=== PATIENT | male | born 1980 | race Caucasian/White ===

== ENCOUNTER → 2019-05-25 16:08 | Outpatient (BNVA) | payer SELFPAY | PROVIDERS: Visit Provider Nurse Practitioner Family | DX: R50.9 Fever, unspecified (principal); J06.9 Acute upper respiratory infection, unspecified | CPT/HCPCS: 87400 ==

== ENCOUNTER → 2019-11-05 11:47 | Outpatient (BNVA) | payer OTHER, SELFPAY | PROVIDERS: Visit Provider Nurse Practitioner Family | DX: Z11.59 Encounter for screening for other viral diseases (principal) | CPT/HCPCS: 87635 ==

== ENCOUNTER → 2021-03-02 00:01 | Outpatient (BNVA) | payer OTHER, SELFPAY | PROVIDERS: Visit Provider Nurse Practitioner Family | DX: Z20.822 Contact with and (suspected) exposure to COVID-19 (principal) | CPT/HCPCS: 87635 ==

== ENCOUNTER 2021-09-29 13:52 | Observation (INO) | payer MEDICAID, SELFPAY ==
[2021-09-29] VITALS (9 sets, daily range): BP systolic 137–180; BP diastolic 77–115; PULSE 60–87; RESP 16–18; TEMP 36.7–36.8; O2SAT 95–99; BMI 41.0
--- NOTE | 2021-09-29 13:53 | ECG_ITS ---
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 Measurements Intervals [place] Rate: 92 P: 62 ID: 124 QRS: 11 QRSD: 102 T: 42 QT: 410 QTc: 508 Interpretive Statements SINUS RHYTHM No previous ECG available for comparison Electronically Signed On 09-29-2021 21:33:34 CDT by Raquel Pena M.D. [id number]
--- NOTE | 2021-09-29 14:18 | ED_ITS ---
HPI - General Adult General: Chief complaint: Chest Pain Stated complaint: Chest pain Left side tingling and numb Time Seen by Provider: 09/29/21 14:04 History of Present Illness: Patient is a 41-year-old male with a history of smoking and family history cardiac disease presenting to the emergency room with intermittent chest pressure. Patient first with chest pressure 3 days ago l asted for 30 minutes. Yesterday, patient also had additional episode of chest pressure yesterday morning with associated lightheadedness. Per patient's , patient briefly fell asleep after having the chest pressure for 10 minutes after having his chest pain yesterday morning. Patient denied any LOC yesterday. Patient earlier this morning around 10 AM also continues to have some chest pressure that is persistent. Patient was also noted to be mildly diaphoretic with nausea without vomiting. Patient reports the chest pressure radiates towards her his left arm. Patient denies any sharp pain or any pleuritic pain. Patient has no recent immobilization, surgery, fever/chills, cough, runny nose sore throat, leg swelling, or previous history of DVT/PE. Patient has no family history of aneurysms of the aorta. Patient reports that his uncle from a heart attack in his 40s. Denies any exertional chest pain in the last few days. Onset:3 days ago Duration:ongoing intermittent worsening Location:home Severity:moderate Associated symptoms: Reports chest pain; Deny dyspnea, nausea, rash, palpitations or vomiting Review of Systems Const: Denies: fever(s) or chills Eyes: Denies: change in vision ENMT: Denies: mouth pain Card: Reports: chest pain; Denies: palpitations Resp: Denies: dyspnea or non-productive cough GI: Denies: abdominal pain, nausea, vomiting or diarrhea : Denies: dysuria Musc: Denies: extremity pain Skin/Breast: Denies: rash or new lesions Neuro: Reports: other (+light-headedness/ reported patient fell asleep after chest pain ); Denies: weakness in extremities Psych: Reports: other (Normal mood) Chato/Lymph: Denies: easy bruising PFS ED PFSH: Medical History No pertinent past medical history Family History Other CAD (coronary artery disease) Social History Smoking and tobacco status: current every day smoker cigarettes Packs smoked per day: 1 Alcohol intake: never Lives independently: Yes Household members: spouse Housing: House Marital status: History of recent travel: No Physical Exam Const: COMMON NORMALS: alert HENMT: COMMON NORMALS: atraumatic HEAD & SCALP: atraumatic MOUTH: moist mucous membranes not abnormal Eye: COMMON NORMALS: EOMs intact bilaterally and conjunctivae normal CONJUNCTIVA: Yes conjunctivae normal Neck/C-Spine: COMMON NORMALS: full ROM and supple Resp: COMMON NORMALS: normal respiratory effort and clear to auscultation bilaterally AUSCULTATION: clear to auscultation bilaterally Cardio: COMMON NORMALS: regular rate RATE: regular rate OTHER: 2+ radial pulses b/l GI: COMMON NORMALS: Soft to palpation and non-tender PALPATION: Yes Soft to palpation OTHER: No focal TTP. NO guarding rebound, guarding, rigidity. No CVA tenderness to percussion. Neg Mccoy/Neg McBurney's point tenderness, no suprabupic tenderness to palpation. Extremity: COMMON NORMALS: full ROM OTHER: no lower extremity edema Neuro: SENSORIUM/ORIENTATION: Yes alert MOTOR EXAM: No Abnormal motor strength present and Other motor observations present (no focal motor deficits) Psych: COMMON NORMALS: speech normal SPEECH: Yes normal speech MOOD & AFFECT: Yes euthymic mood Course Vital Signs: Vital signs: Vital Signs Temperature 98.1 F 09/29/21 13:53 Pulse Rate 66 09/29/21 18:00 Respiratory Rate 16 09/29/21 18:00 Blood Pressure 149/86 09/29/21 18:00 Pulse Oximetry 98 09/29/21 18:00 MDM - General Adult Medical Decision Making [41]yo patient w/ hx of family hx of cardiac disease and smoking presenting to the ED with evaluation of new intermittent chest pressures x 3 days with one ep isode associated with light-headedness vs syncope. HDS, pulse 2+ radially bilaterally, no signs of fluid overload, AAOx3, neuro exam intact. Given History and Exam today I have no suspicion for ACS, Pneumothorax, Pneumonia, Pulmonary Embolus, Tamponade, Aortic Dissection or other emergent problems as a cause for this presentation. Workup: ECG x2, CXR, CBC, BMP, Troponin x 2 Interventions: ASA 325mg, nitro SL PRN pain Findings: ECG: No overt evidence of STEMI, hyperacute T waves, localizable STD or T wave inversions. No evidence of Brugada?s sign, delta wave, epsilon wave, significantly prolonged QTc, or malignant arrhythmia. No Q waves. Other Labs unremarkable for emergent problems. CXR: Without PTX, PNA, or widened mediastinum Last Stress Test: never Last Heart Catheterization: never PERC: Negative [6:14pm] On reassessment, the patient is HDS, no complaints of persistent chest pain in the ED after evaluation. EKG is nonischemic. Troponin x2 within normal limit. At the present time, performed shared decision making with patient. Given the fact that this patient's third episodes of chest pain last 3 days and previous episodes were accompanied by syncope patient had diaphoresis earlier today, this is concerning for ACS despite negative work-up at this point. Patient agrees to stay for ACS work-up Disposition: admission Lab Data : 09/29/21 14:25 09/29/21 14:25 Radiology Impressions Chest X-Ray 09/29/21 15:23 IMPRESSION: 1. No acute process identified. Laboratory Results WBC 11.6 10^3/uL (4.0-10.0) H 09/29/21 14:25 RBC 4.85 10^6/uL (4.1-5.3) 09/29/21 14:25 Hgb 14.7 g/dL (11.7-16.6) 09/29/21 14:25 Hct 45.1 % (42.0-52.0) 09/29/21 14:25 MCV 93.0 fl (80-94) 09/29/21 14:25 MCH 30.3 pg (28.0-34.0) 09/29/21 14:25 MCHC 32.6 g/dL (30.0-36.0) 09/29/21 14:25 RDW 13.2 % (12.1-15.1) 09/29/21 14:25 Plt Count 231 10^3/cmm (130-400) 09/29/21 14:25 MPV 11.2 fL (7.4-10.4) H 09/29/21 14:25 Neut % (Auto) 76.1 % 09/29/21 14:25 Lymph % (Auto) 16.3 % 09/29/21 14:25 [place] % (Auto) 6.7 % 09/29/21 14:25 Eos % (Auto) 0.3 % 09/29/21 14:25 Baso % (Auto) 0.3 % 09/29/21 14:25 Neut # (Auto) 8.79 10^3/uL (1.8-7.7) H 09/29/21 14:25 Lymph # (Auto) 1.9 10^3/uL (0.8-4.8) 09/29/21 14:25 [place] # (Auto) 0.8 10^3/uL (0.2-0.9) 09/29/21 14:25 Eos # (Auto) 0.0 10^3/uL (0.0-0.8) 09/29/21 14:25 Baso # (Auto) 0.0 10^3/uL (0.0-0.1) 09/29/21 14:25 Nucleated RBC % (auto) 0 % 09/29/21 14:25 Nucleated RBCs # 0.0 /100WBC 09/29/21 14:25 Sodium 139 mmol/L (136-145) 09/29/21 14:25 Potassium 3.7 mmol/L (3.5-5.1) 09/29/21 14:25 Chloride 105 mmol/L (98-107) 09/29/21 14:25 Carbon Dioxide 24 mmol/L (22-29) 09/29/21 14:25 Anion Gap 13.7 (5-19) 09/29/21 14:25 BUN 10 mg/dL (6-20) 09/29/21 14:25 Creatinine 0.7 mg/dL (0.7-1.2) 09/29/21 14:25 GFR Calculation 124.9 mL/min (90-130) 09/29/21 14:25 Glucose 89 mg/dL (65-115) 09/29/21 14:25 Calculated Osmolality 287 mOsm/kg (285-295) 09/29/21 14:25 Calcium 9.2 mg/dL (8.5-10.5) 09/29/21 14:25 Troponin T Baseline 6 ng/L (0-15) 09/29/21 14:25 Troponin T 120 Minute 6.00 ng/L (0-15) 09/29/21 16:57 Delta Troponin T 0 ABS# (0-10) 09/29/21 16:57 Imaging Data Other Imaging: Radiologist's impression: [facility] [place] [address] XRay Report Signed Patient: Yaniv Peñaloza Unit #: [id number] : 1980 Age/Sex: 41 / M ADM Date: 09/29/21 Loc: ER Room/Bed: Attending Dr: Ordering Provider/Ordering MD: Yo Perez MD Date of Service: 09/29/21 Procedure(s): XR chest 1V portable [id number] Accession Number(s): [id number] Report Number: [id number] WS: [id number] Exam: XR chest 1V portable [id number] Date/Time of Exam: 09/29/2021 3:25 PM Reason For Exam: chest pain No priors. The lungs are fully expanded. No consolidating infiltrates or pleural effusions. Cardiomediastinal silhouette is unremarkable for technique. Decreased lung volumes appear to be secondary to limited inspiration. Bony structures are intact. XR/XR chest 1V portable [id number] IMPRESSION: 1. No acute process identified. ? Dictated By: Reza House DO Signed By: Reza House DO Signed Date/Time: 09/29/21 1538 DD/ 1536 Discharge Plan Discharge Patient Disposition: Admitted As Inpatient Clinical Impression: Chest pain Condition: Stable Coding Level of Care Code ED Research Advisor for Chg Fwd Exam Comprehensive
[2021-09-29] MEDS: aspirin 325 mg Tablet PO (15:01)
--- NOTE | 2021-09-29 15:23 | XR_ITS ---
WS: [id number] Exam: XR chest 1V portable [id number] Date/Time of Exam: 09/29/2021 3:25 PM Reason For Exam: chest pain No priors. The lungs are fully expanded. No consolidating infiltrates or pleural effusions. Cardiomediastinal si lhouette is unremarkable for technique. Decreased lung volumes appear to be secondary to limited insp iration. Bony structures are intact. XR/XR chest 1V portable [id number] IMPRESSION: 1. No acute process identified.
[2021-09-29 16:20] LABS: Basophils % 0.3 %; Eosinophils % 0.3 %; Hematocrit 45.1 % (42.0-52.0); Hemoglobin 14.7 g/dL (11.7-16.6); Lymphocytes # 1.9 10^3/uL (0.8-4.8); Lymphocytes % 16.3 %; Mean Corpuscular HGB Conc 32.6 g/dL (30.0-36.0); Mean Corpuscular Hemoglobin 30.3 pg (28.0-34.0); Mean Platelet Volume 11.2 fL (7.4-10.4); Monocytes # 0.8 10^3/uL (0.2-0.9); Monocytes % 6.7 %; Neutrophils # 8.79 10^3/uL (1.8-7.7); Neutrophils % 76.1 %; Nucleated Red Blood Cells % 0 %; Platelet Count 231 10^3/cmm (130-400); Red Blood Count 4.85 10^6/uL (4.1-5.3); Red Cell Distribution Width 13.2 % (12.1-15.1); White Blood Count 11.6 10^3/uL (4.0-10.0)
[2021-09-29 16:33] LABS: Troponin(5th) Baseline 6 ng/L (0-15)
[2021-09-29 16:41] LABS: Anion Gap 13.7 (5-19); Blood Urea Nitrogen 10 mg/dL (6-20); Calcium 9.2 mg/dL (8.5-10.5); Carbon Dioxide 24 mmol/L (22-29); Chloride 105 mmol/L (98-107); Glomerular Filtration Rate 124.9 mL/min (90-130); Glucose 89 mg/dL (65-115); Osmolality Calculated 287 mOsm/kg (285-295); Potassium 3.7 mmol/L (3.5-5.1); Sodium 139 mmol/L (136-145)
[2021-09-29 17:51] LABS: Troponin 5 2HR Delta 0 ABS# (0-10)
--- NOTE | 2021-09-29 18:12 | ECG_ITS ---
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 Measurements Intervals [place] Rate: 60 P: 52 MI: 143 QRS: 26 QRSD: 100 T: 41 QT: 401 QTc: 403 Interpretive Statements SINUS RHYTHM Compared to ECG 09/29/2021 13:59:37 No significant changes Electronically Signed On 09-29-2021 21:40:03 CDT by Raquel Pena M.D. [id number]
--- NOTE | 2021-09-29 18:54 | PM.HP ---
Providers/Chief Complaint Chief Complaint: Chest pain Left side tingling and numb History of Present Illness Yaniv Peñaloza is a 41 year old male who presented with chief complaint of chest pain. Patient is stating that he is conscious about family history of MS, his uncle had MS at age 40. He does not have any medical surgical history. 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 On Tuesday he start experiencing tightness in his chest but would not call the chest pain, on Tuesday he started spearing seeing numbness in his left arm that made him very anxious and that prompted his visit to the ER. His blood pressure lately was very high. Did not experience fever, shortness of breath, orthopnea, PND, cold sweats. 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 EKG unremarkable. Stress test was requested for next morning, echo requested Review of Systems Const: Denies: fever(s) Eyes: Denies: change in vision ENMT: Denies: throat pain Card: Denies: chest pain Resp: Denies: dyspnea GI: Denies: abdominal pain : Denies: flank pain Musc: Denies: neck pain Skin/Breast: Denies: rash Neuro: Denies: headache(s) Psych: Denies: anxiety Endo: Denies: polyuria Chato/Lymph: Denies: easy bruising All/Imm: Denies: urticaria Medications/Allergies Home Medications Medication Instructions Recorded Confirmed Last Taken Type No Known Home Medications 11/05/19 09/29/21 Unknown History Allergies Allergy/AdvReac Type Severity Reaction Status Date / Time No Known Allergies Allergy Verified 03/02/21 11:29 PFSH Acute PFSH: Medical History No pertinent past medical history No pertinent past medical history Surgical History No significant past surgical history Family History Other CAD (coronary artery disease) Social History Smoking and tobacco status: current every day smoker cigarettes Packs smoked per day: 1 Alcohol intake: never Lives independently: Yes Household members: spouse Housing: House Marital status: History of recent travel: No Vitals/I&O/Wt Last Vital Signs Temp 98.1 F 09/29/21 13:53 Pulse 66 09/29/21 18:00 Resp 16 09/29/21 18:00 BP 149/86 09/29/21 18:00 Pulse Ox 98 09/29/21 18:00 Weight last 48 hrs Weight 161.025 kg Physical Exam Narrative: Morbidly obese male Euvolemic Abdomen soft S1, S2 No audible stridor or wheezing Awake and alert No sign of cellulitis Pleasant and cooperative EOMI, PERRLA Data : 09/30/21 02:18 09/30/21 02:18 A&P Assessment and plan (1) Atypical chest pain: Status: Acute Plan Atypical chest pain Numbness of bilateral upper extremity No neck pain or headache No recent trauma Suspicion low for carotid artery dissection Will request echo Stress test in the morning No active symptoms Hemodynamically stable No signs of ACS Troponin, EKG unremarkable Check D-dimer , TSH Drug screen Full code Cardiac cath, n.p.o. after midnight DVT prophylaxis on board Attestations Medical Necessity Statement*: Anticipating discharge within 48 hrs to also need evaluation for angina Time Spent in Patient Care: 40 Coding Level of Care Code Acute Telesales Representative for Myesha Mcneal Diagnoses Atypical chest pain R07.89
[2021-09-29 18:59] LABS: Amphetamines Screen Urine Negative (Negative); Barbiturates Screen Urine Negative (Negative); Benzodiazepines Screen Urine Negative (Negative); Cocaine Screen Urine Negative (Negative); Opiate Screen Urine Negative (Negative); PCP Screen Urine Negative (Negative); THC Screen Urine Negative (Negative)
--- NOTE | 2021-09-29 19:51 | PC.NURSE ---
Report from ADIEL Trejo. Pt sitting up in bed. No complaints at this time. VSS and recorded. IV flushed and patent. Assisted pt to restroom. No further needs at this time.
[2021-09-29 20:26] LABS: Thyroid Stimulating Hormone 0.88 uIU/mL (0.27-4.20)
[2021-09-29 20:59] LABS: D Dimer 0.34 ug/mIFEU (0-0.59)
--- NOTE | 2021-09-29 21:39 | USCV_ITS ---
Yaniv Peñaloza Age: 41 Gender: M : 1980 Exam Date: 09/29/2021 22:30 Ordering Phys: Roxanna Torrez MD Technologist: NADJA [place]am [place] [facility] [place] Indication: syncope. no DM. Smoker BP: 142 / 78 HR: 69 Rhythm: Sinus Technical Quality: Adequate with [employer] MEASUREMENTS (Male / Female) Normal Values 2D ECHO LV Diastolic Diameter PLAX 4.6 cm 4.2 - 5.9 / 3.9 - 5.3 cm LV Systolic Diameter PLAX 3.1 cm IVS Diastolic Thickness 1.7 cm 0.6 - 1.0 / 0.6 - 0.9 cm IVS Systolic Thickness 2.0 cm LVPW Diastolic Thickness 1.4 cm 0.6 - 1.0 / 0.6 - 0.9 cm LVPW Systolic Thickness 2.1 cm LVOT Diameter 2.4 cm LV Ejection Fraction 2D Teich 59.3 % LV Ejection Fraction MOD 2C 70.7 % LV Ejection Fraction 2C AL 71.4 % LA Diameter 3.6 cm LA Width 4.2 cm LA Height 4.8 cm RA Width 3.6 cm RA Height 3.6 cm Aorta at Sinotubular Diameter 3.4 cm IVC Diameter 1.5 cm M-MODE Aortic Annulus Diameter 3.5 cm LA Ao Ratio MM 1.0 MV E Point Septal Separation 0.5 cm DOPPLER AV Peak Velocity 127.0 cm/s LVOT Peak Velocity 92.0 cm/s AV Area Cont Eq vti 3.0 cm squared AV Area Cont Eq pk 3.1 cm squared MV Peak Velocity 87.0 cm/s MV Area PHT 3.2 cm squared Mitral E to A Ratio 1.1 MV E' Velocity 44.0 cm/s Mitral E to MV E' Ratio 6.3 Mitral E to LV E' Lateral Ratio 6.4 Mitral E to LV E' Septal Ratio 6.3 TR Peak Velocity 181.0 cm/s TR Peak Gradient 13.1 mmHg TV Peak E Velocity 53.0 cm/s Right Atrial Pressure 5.0 mmHg Pulmonary Artery Systolic Pressu 18.1 mmHg PV Peak Velocity 88.0 cm/s RV Acceleration Time 0.2 s RV Ejection Time 0.4 s RV AcT/ET 0.5 FINDINGS Left Ventricle Normal left ventricular size, systolic function and wall thickness, with no regional wall motion abnormalities. Normal diastolic function. Left ventricular ejection fraction is estimated at 65 %. IV contrast used. Right Ventricle Normal right ventricular size and systolic function. Normal right ventricular systolic pressure. Right Atrium The right atrium is normal in size. Left Atrium The left atrium is normal in size. Mitral Valve Structurally normal mitral valve. Trace mitral valve regurgitation. Aortic Valve Structurally normal aortic valve without significant sclerosis or stenosis. There is no aortic regurgitation. Tricuspid Valve Structurally normal tricuspid valve. Trace tricuspid valve regurgitation. Pulmonic Valve Pulmonic valve not well visualized. Pericardium Normal pericardium without effusion. Aorta Normal ascending aorta dimension. IVC The inferior vena cava pulmonary and hepatic veins appear normal. CONCLUSIONS Normal left ventricular size, systolic function and wall thickness, with no regional wall motion abnormalities. Normal diastolic function. Left ventricular ejection fraction is estimated at 65 %. IV contrast used. Structurally normal mitral valve. Trace mitral valve regurgitation. Dr. Eliezer Galeano MD (Electronically Signed) Final Date: 30 September 2021 10:51 S
--- NOTE | 2021-09-29 21:39 | USCV_ITS ---
Yaniv Peñaloza Age: 41 Gender: M : 1980 Exam Date: 09/29/2021 22:01 Ordering Phys: Roxanna Torrez MD Technologist: NADJA Exam Location: [facility] Indication: syncope. no DM. Smoker Risk Factors: syncope. no DM. Smoker Previous Vascular Surgery: None Right Brachial BP: / Left Brachial BP: / Right Left Velocity (cm/s) Spectral Plaque Velocity (cm/s) Spectral Plaque Syst/Diast Broadening Syst/Diast Broadening 69.50/ 17.60 Min None Prox CCA 124.90/ 38.10 Min None 87.10/ 17.60 Min None Mid CCA 117.00/ 28.90 Min None 110.30/33.10 Min None Distal CCA 107.80/ 27.60 Min None 55.20/ 21.80 Min None Prox ICA 93.30 / 32.90 Min None 80.00/ 34.90 Min None Mid ICA 74.40 / 38.10 Min None 72.90/ 27.80 Min None Distal ICA 91.10 / 38.10 Min None 88.20 None None ECA 96.00 None None 0.73 ICA/CCA 0.75 Antegrade Vertebral Antegrade 40.70/ 18.10 cm/s 31.90/ 8.50 cm/s Tri Subclavian Tri 65.30 68.20 CONCLUSIONS Right ICA stenosis <50%. Mild atheromatous plaque right carotid bulb/ICA. Left ICA stenosis <50%. Mild atheromatous plaque left carotid bulb/ICA. Normal antegrade Doppler flow noted in the right vertebral artery. Normal antegrade Doppler flow noted in the left vertebral artery. Carlo García MD (Electronically Signed) Final Date: 01 October 2021 17:37 S
[2021-09-29 22:08] LABS: SARS Covid-2 Antigen Negative (Negative)
--- NOTE | 2021-09-29 22:12 | ECG_ITS ---
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 Measurements Intervals [place] Rate: 58 P: 60 IA: 147 QRS: 29 QRSD: 108 T: 37 QT: 414 QTc: 409 Interpretive Statements SINUS BRADYCARDIA Compared to ECG 09/29/2021 18:19:47 Sinus rhythm no longer present Electronically Signed On 09-30-2021 16:32:20 CDT by Eliezer Galeano M.D. [email or web address]/store/[id number]
[2021-09-29] MEDS: enoxaparin 40 mg/0.4 mL Syringe SUBCUT (22:16)
[2021-09-29 22:47] LABS: Troponin 5 6HR Delta 0 ng/L (0-12)
[2021-09-30] VITALS (15 sets, daily range): BP systolic 122–171; BP diastolic 64–92; PULSE 57–83; RESP 14–18; TEMP 36.7–37.1; O2SAT 96–99
--- NOTE | 2021-09-30 | ECG_ITS ---
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 Interpretive Statements NAME OF STUDY: LEXISCAN SESTAMIBI STRESS TEST INDICATION: Syncope, PROCEDURE: At the baseline, the EKG revealed normal sinus rhythm with a normal ST Ts. The baseline blood pressure was 125/91 mm Hg with a heart rate of 75 beats/min. Lexiscan was infused over a period of 20 seconds. A total of 0.4 milligrams of Lexiscan was infused. The stress phase was continued for a total of 5 minutes. Heart rate at the end of the stress phase was 89 with a blood pressure 137/86. The EKG at the peak infusion revealed no significant changes. Sestamibi was injected 20 seconds after the Lexiscan infusion. Blood pressure at the end of the recovery phase was 142/83 with a heart rate of 87 per minute. CONCLUSION: 1. No significant EKG changes with the LexiScan infusion 2. No LexiScan induced chest pain or cardiac arrhythmia 3. Normal blood pressure and heart rate response 4. Sestamibi/sestamibi perfusion scan pending; see separate report. Electronically Signed On 10-02-2021 18:00:23 CDT by Samuel Cobb M.D. [id number]
[2021-09-30 04:37] LABS: Anion Gap 12.9 (5-19); Blood Urea Nitrogen 8 mg/dL (6-20); Calcium 8.9 mg/dL (8.5-10.5); Carbon Dioxide 26 mmol/L (22-29); Chloride 105 mmol/L (98-107); Glomerular Filtration Rate 124.9 mL/min (90-130); Glucose 101 mg/dL (65-115); Magnesium 2.1 mg/dL (1.7-2.3); Osmolality Calculated 288 mOsm/kg (285-295); Potassium 3.9 mmol/L (3.5-5.1); Sodium 140 mmol/L (136-145)
[2021-09-30 04:59] LABS: Basophils % 0.4 %; Eosinophils # 0.1 10^3/uL (0.0-0.8); Eosinophils % 0.6 %; Hematocrit 43.4 % (42.0-52.0); Hemoglobin 13.9 g/dL (11.7-16.6); Lymphocytes % 29.2 %; Mean Corpuscular Hemoglobin 30.5 pg (28.0-34.0); Mean Corpuscular Volume 95.2 fl (80-94); Mean Platelet Volume 10.3 fL (7.4-10.4); Monocytes # 0.8 10^3/uL (0.2-0.9); Monocytes % 8.1 %; Neutrophils # 6.26 10^3/uL (1.8-7.7); Neutrophils % 61.5 %; Nucleated Red Blood Cells % 0 %; Platelet Count 194 10^3/cmm (130-400); Red Blood Count 4.56 10^6/uL (4.1-5.3); Red Cell Distribution Width 13.2 % (12.1-15.1); White Blood Count 10.2 10^3/uL (4.0-10.0)
[2021-09-30] MEDS: perflutren protein-a microsphr 0.22 mg/mL SDV 3 mL IV (05:41)
--- NOTE | 2021-09-30 07:00 | NMCV_ITS ---
NM curt perf SPECT r/s* [id number] Yaniv Peñaloza Age: 41 Gender: M : 1980 Exam Date: 09/30/2021 06:35 Ordering Phys: Roxanna Torrez MD Technologist: JEISON Crowe Exam Location: [facility] Indications: Chest pain STRESS TEST Please see separate stress test report in [facility] for full findings IMAGE PROTOCOL Rest/Stress 1 Lexiscan Day Radiopharmaceutical Dose (mCi) Administration Site Administered by Rest: Tc-99m 10.7 IV JEISON Crowe Sestamibi Stress:Tc-99m 33.0 IV JEISON Crowe Sestamibi Rest: 30-Sep-2021 60 Discovery 630 Stress: 30-Sep-2021 45 Discovery 630 0.4mg Lexiscan. Images obtained in supine and prone position. SPECT RESULTS Technical Quality: Good Raw Data Analysis: Soft tissue attenuation Image Corrections: No attenuation or motion correction applied Summed Stress Score: 8 Summed Rest Score: 11 Summed Difference Score: 2 PERFUSION FINDINGS Moderate area of moderately decreased tracer uptake was noted in the basal, mid and apical anterior wall regions. No significant reversibility was noted in these regions. Small to moderate slightly decreased visibility was noted in the mid and apical inferior wall region, with no significant reversibility. Very small area of decreased tracer uptake was noted in the LV apex with some reversibility FUNCTIONAL RESULTS (calculated via Gated SPECT) Stress Image LV EF (%): 53 Stress EDV (mL):183 TID: 1.29 Stress ESV (mL):86 FUNCTIONAL FINDINGS: Segmental wall motion analysis revealed mild diffuse hypokinesia of the septum. The transient ischemic elevation ratio was elevated at 1.29. IMPRESSIONS 1. Myocardial perfusion imaging revealing areas of persistent decreases uptake in the anterior wall and inferior wall regions, suggesting myocardial scarring versus attenuation artifacts in distribution of the left anterior descending artery and right coronary artery. A very small area of reversibility in the LV apex, may suggest colten-infarction ischemia. 2. Normal LV ejection fraction 53%. 3. Wall motion normalities as mentioned above. 4. Mildly dilated LV cavity. 5. Elevated transient ischemic dilatation ratio ( 1.29) may suggest endocardial ischemia. Clinical correlation is recommended. No similar previous studies are available for comparison Dr Samuel Cobb MD FACC (Electronically Signed) Final Date: 30 September 2021 09:21 S
[2021-09-30] MEDS: regadenoson 0.4 Mg/5 ml Syringe IVP (07:38)
--- NOTE | 2021-09-30 10:54 | PC.SOCIAL ---
Financial Assistance Received a call from patients inquiring about financial assistance application. She is gathering all the information to provide financial services. Will leave a copy of the [facility] financial assistance application w/ the patient per wifes request.
[2021-09-30 11:25] LABS: Glucose Point of Care 105 mg/dL (70-110)
--- NOTE | 2021-09-30 12:48 | PM.PN ---
Subjective Subjective: Echo and stress tests without significant remarkable ischemic changes I did discuss with Dr. Cobb who is planning to see him today considering family history I have requested tobacco roller Dr. Cobb to see him in the hospital to decide whether he would benefit from an angiogram during this hospitalization versus elective procedure Patient is not complaining of any active chest pain or numbness he stating that his left fifth digit numbness is chronic left arm numbness has improved Vitals/I&O/Wt Last Vital Signs Temp 98.4 F 09/30/21 11:34 Pulse 75 09/30/21 11:34 Resp 18 09/30/21 11:34 BP 132/79 09/30/21 11:34 Pulse Ox 98 09/30/21 11:34 O2 Del Method 09/30/21 11:34 Weight last 48 hrs Weight 161.025 kg Physical Exam Narrative: Patient is stable Morbid obese Soft abdomen S1, S2 Awake and alert No active chest pain or shortness of breath Awake and alert Nonfocal neuro exam Saturating well on room air No signs of edema No signs of stroke Data : 09/30/21 02:18 09/30/21 02:18 A&P Assessment and plan (1) Atypical chest pain: Status: Acute Plan Atypical chest pain with positive family history Dagmar-infarct changes on cardiac stress test however echo is unremarkable I requested cardiology to evaluate him at bedside Is full code Cardiac diet Currently chest pain-free I will request hemoglobin A1c level and lipid panel, he does not use any medication at home Also requested B12 level No active neck pain or headache Hemodynamically stable He should get blood pressure cuff size 12 Full code Attestations Medical Necessity Statement*: Patient plan will be made after cardiology evaluation Time Spent in Patient Care: 30 Coding Level of Care Code Acute Security Tech for Myesha Fwchad Diagnoses Atypical chest pain R07.89
--- NOTE | 2021-09-30 13:08 | ECG_ITS ---
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 Measurements Intervals [place] Rate: 68 P: 52 CO: 139 QRS: 10 QRSD: 97 T: 8 QT: 409 QTc: 436 Interpretive Statements SINUS RHYTHM Compared to ECG 09/29/2021 23:22:26 Sinus bradycardia no longer present Electronically Signed On 09-30-2021 16:30:34 CDT by Eliezer Galeano M.D. [id number]
[2021-09-30] MEDS: nitroglycerin 0.4 mg sublingual Tablet SUBLINGUAL ×2 (13:15→20:18)
[2021-09-30 13:27] LABS: Vitamin B12 465 pg/mL (232-1245)
[2021-09-30] MEDS: lisinopril 10 mg Tablet PO (13:36)
--- NOTE | 2021-09-30 13:40 | P.CONIM_ITS ---
Providers/Reason For Consult Consulting Physician/Specialty*: SCOTT Cobb MD/cardiology Reason for Consult*: Patient with chest pain and abnormal Myocardial perfusion imaging Requesting Physician: Dr. Torrez Attending Physician: Roxanna Torrez MD History of Present Illness History of Present Illness Yaniv Peñaloza is a 41 year old male with no significant past medical history, is admitted to the hospital through the emergency room, very present with complaints of a prolonged episode of chest pain. This patient apparently has been in his baseline state of health up until this S morning when he had the first episode of pain. He described it as a pressure-like pain in the lower substernal region. He had associated tingling and numbness of the inner aspect of the left arm. The episode might have lasted for couple of hours and then gradually subsided. The intensity of the pain was 1-2 over 10. The discomfort was 6/10. He had no other associated symptoms or any radiation of pain. He had similar symptoms on Tuesday and Tuesday. All these episodes happened between 10 -12 noon. No other definite precipitating factors. Today while I was talking to the patient, he was complaining of some pressure- like feeling in the epigastric area. He also complained of tingling and numbness in the inner aspect of the left arm. He seems to be not bothered with this. Apparently he is eating his lunch with this symptom!. He has no history for hypertension, diabetes or dyslipidemia. Never had a similar symptoms in the past. His father had a myocardial infarction in his 60s. One of his paternal uncles had a myocardial infarction in his 40s. Many of his paternal uncles and aunts had heart problems in their 60s and 70s. He smokes 1-1/2 pack a day for the last more than 20 years. No alcohol abuse and substance abuse. His blood pressure was found to be in the 170s on Tuesday. And on Tuesday when he had the first episode of chest pain, the blood pressure was in the 120s. Review of Systems Narrative: CONSTITUTIONAL: No fever or chills. [] EYES: No blurring of vision or other visual disturbances lately. ENT: No hoarseness of voice, auditory disturbances or sore throat. CARDIOVASCULAR: As mentioned above. RESPIRATORY: No significant cough. GASTROINTESTINAL: No hematemesis or melena. GENITOURINARY: No dysuria or hematuria. INTEGUMENTARY: No skin rashes or history of skin cancer. NEURO: No transient ischemic attacks or amaurosis. PSYCHIATRIC: No history of psychosis or major depression. HEMATOLOGIC: No bleeding disorders or significant anemia. ENDOCRINE: No history of polyuria or polydipsia. MUSCULOSKELETAL: No recent joint pain or swelling. ALLERGY/IMMUNOLOGY: As mentioned above. Medications/Allergies Home Medications Medication Instructions Recorded Confirmed Last Taken Type No Known Home Medications 11/05/19 09/29/21 Unknown History Allergies Allergy/AdvReac Type Severity Reaction Status Date / Time No Known Allergies Allergy Verified 03/02/21 11:29 Current Medications Generic Name Dose Route Start Last Admin Trade Name Freq PRN Reason Stop Dose Admin Enoxaparin Sodium 40 mg 09/29/21 22:00 09/29/21 22:16 Enoxaparin 40 Mg/0.4 Ml Syringe SUBCUT 40 mg Q24H JAYJAY Administration Nitroglycerin 0.4 mg 09/29/21 14:04 09/30/21 13:15 Nitroglycerin 0.4 Mg Sublingual Tablet SUBLINGUAL 0.4 mg Q5M PRN Administration CHEST PAIN PFSH Acute PFSH: Medical History No pertinent past medical history No pertinent past medical history Surgical History No significant past surgical history Family History Other CAD (coronary artery disease) Social History Smoking and tobacco status: current every day smoker cigarettes Packs smoked per day: 1 Alcohol intake: never Lives independently: Yes Household members: spouse Housing: House Marital status: History of recent travel: No Vitals/I&O/Wt Last Vital Signs Temp 98.4 F 09/30/21 11:34 Pulse 80 09/30/21 13:13 Resp 18 09/30/21 11:34 BP 145/77 09/30/21 13:31 Pulse Ox 98 09/30/21 11:34 O2 Del Method 09/30/21 11:34 Weight last 48 hrs Weight 355 lb Physical Exam Narrative: GENERAL: The patient is alert and oriented times three. Not in any acute distress. Morbidly obese HEENT: No significant pallor, icterus or lymphadenopathy.Oral cavity: There are no mucous membrane lesions. Fundus examination: Fundus is not visualized NECK: Trachea appears to be central. No masses noted. No JVD or thyromegaly appreciated. RESPIRATORY: Chest is symmetrical. No intercostals muscle retraction or any accessory muscle activation. There is no chest wall tenderness. Breath sounds are heard bilaterally. No rales or rhonchi heard. No evidence of any consolidation. BREASTS: Deferred. HEART: The heart sounds are normal. No S3 or S4. No significant murmurs. No pericardial rub ABDOMEN: No vessel pulsations or distention. No tenderness. No organomegaly appreciated. Bowel sounds are normally heard. : Deferred. RECTAL: Deferred. LYMPHATIC: No lymphadenopathy noted in the neck. EXTREMITIES: No edema or cyanosis. No clubbing. MUSCULOSKELETAL: No acute joint deformities or swelling SKIN: There are no significant rashes or ecchymosis NEUROPSYCHIATRIC: The patient is alert and oriented x3. Appears to be in a good mood. No tremors or rigidity noted. Data : 09/30/21 02:18 09/30/21 02:18 Other Labs: Laboratory Last Values WBC 10.2 10^3/uL (4.0-10.0) H 09/30/21 02:18 RBC 4.56 10^6/uL (4.1-5.3) 09/30/21 02:18 Hgb 13.9 g/dL (11.7-16.6) 09/30/21 02:18 Hct 43.4 % (42.0-52.0) 09/30/21 02:18 MCV 95.2 fl (80-94) H 09/30/21 02:18 MCH 30.5 pg (28.0-34.0) 09/30/21 02:18 MCHC 32.0 g/dL (30.0-36.0) 09/30/21 02:18 RDW 13.2 % (12.1-15.1) 09/30/21 02:18 Plt Count 194 10^3/cmm (130-400) 09/30/21 02:18 MPV 10.3 fL (7.4-10.4) 09/30/21 02:18 Neut % (Auto) 61.5 % 09/30/21 02:18 Lymph % (Auto) 29.2 % 09/30/21 02:18 Holt % (Auto) 8.1 % 09/30/21 02:18 Eos % (Auto) 0.6 % 09/30/21 02:18 Baso % (Auto) 0.4 % 09/30/21 02:18 Neut # (Auto) 6.26 10^3/uL (1.8-7.7) 09/30/21 02:18 Lymph # (Auto) 3.0 10^3/uL (0.8-4.8) 09/30/21 02:18 Holt # (Auto) 0.8 10^3/uL (0.2-0.9) 09/30/21 02:18 Eos # (Auto) 0.1 10^3/uL (0.0-0.8) 09/30/21 02:18 Baso # (Auto) 0.0 10^3/uL (0.0-0.1) 09/30/21 02:18 Nucleated RBC % (auto) 0 % 09/30/21 02:18 Nucleated RBCs # 0.0 /100WBC 09/30/21 02:18 D-Dimer 0.34 ug/mIFEU (0-0.59) 09/29/21 20:18 Sodium 140 mmol/L (136-145) 09/30/21 02:18 Potassium 3.9 mmol/L (3.5-5.1) 09/30/21 02:18 Chloride 105 mmol/L (98-107) 09/30/21 02:18 Carbon Dioxide 26 mmol/L (22-29) 09/30/21 02:18 Anion Gap 12.9 (5-19) 09/30/21 02:18 BUN 8 mg/dL (6-20) 09/30/21 02:18 Creatinine 0.7 mg/dL (0.7-1.2) 09/30/21 02:18 GFR Calculation 124.9 mL/min (90-130) 09/30/21 02:18 Glucose 101 mg/dL (65-115) 09/30/21 02:18 POC Glucose 105 mg/dL (70-110) 09/30/21 11:20 Estimat Average Glucose 105 09/30/21 02:18 Hemoglobin A1c 5.3 % (4.0-6.0) 09/30/21 02:18 Calculated Osmolality 288 mOsm/kg (285-295) 09/30/21 02:18 Calcium 8.9 mg/dL (8.5-10.5) 09/30/21 02:18 Magnesium 2.1 mg/dL (1.7-2.3) 09/30/21 02:18 Troponin T Gen 5 ng/L 6 ng/L (0-15) 09/30/21 13:53 Troponin T Baseline 6 ng/L (0-15) 09/29/21 14:25 Troponin T 120 Minute 6.00 ng/L (0-15) 09/29/21 16:57 Delta Troponin T 0 ABS# (0-10) 09/29/21 16:57 Troponin T Hi Sens 6Hr 6.00 ng/L (0-15) 09/29/21 20:18 Troponin T Hi Sens 6Hr Delta 0 ng/L (0-12) 09/29/21 20:18 Triglycerides 146 mg/dL (0-150) 09/30/21 02:18 Cholesterol 178 mg/dL (0-200) 09/30/21 02:18 LDL Cholesterol, Calc 117 mg/dL (50-129) 09/30/21 02:18 HDL Cholesterol 32 mg/dL (60-100) L 09/30/21 02:18 LDL/HDL Ratio 3.66 RATIO (0.00-3.22) H 09/30/21 02:18 Cholesterol/HDL Ratio 5.56 mg/dL (1.0-5.00) H 09/30/21 02:18 Vitamin B12 465 pg/mL (232-1245) 09/29/21 20:18 TSH 0.88 uIU/mL (0.27-4.20) 09/29/21 14:25 Urine Opiates Screen Negative ng/mL (Negative) 09/29/21 18:30 Ur Barbiturates Screen Negative ng/mL (Negative) 09/29/21 18:30 Ur Phencyclidine Scrn Negative ng/mL (Negative) 09/29/21 18:30 Ur Amphetamines Screen Negative ng/mL (Negative) 09/29/21 18:30 U Benzodiazepines Scrn Negative ng/mL (Negative) 09/29/21 18:30 Urine Cocaine Screen Negative ng/mL (Negative) 09/29/21 18:30 U Marijuana (THC) Screen Negative ng/mL (Negative) 09/29/21 18:30 SARS-CoV-2 Ag (Rapid) Negative (Negative) 09/29/21 21:42 MPI: My impression: 1.? Myocardial perfusion imaging revealing areas of persistent decreases uptake ?in the anterior wall and inferior wall regions, suggesting myocardial scarring ?versus attenuation artifacts in distribution of the left anterior descending ?artery and right coronary artery.? A very small area of reversibility in the LV ?apex, may suggest colten-infarction ischemia. ?2.? Normal LV ejection fraction 53%. ?3.? Wall motion normalities as mentioned above. ?4.? Mildly dilated LV cavity. ?5.? Elevated transient ischemic dilatation ratio ( 1.29) may suggest ?endocardial ischemia.? Clinical correlation is recommended. ?No similar previous studies are available for comparison Echo: My impression: Normal left ventricular size, systolic function and wall ?thickness, with no regional wall motion abnormalities. Normal ?diastolic function. Left ventricular ejection fraction is ?estimated at 65 %. IV contrast used. ?Structurally normal mitral valve. Trace mitral valve ?regurgitation. EKG 1: My Interpretation: Normal sinus rhythm with a heart rate of [address] Ts. Normal TN and QRS durations. EKG computer-generated impression: Chest X-Ray 09/29/21 15:23 IMPRESSION: 1. No acute process identified. A&P Assessment and plan (1) Chest pain: Chest pain, in view of the abnormal Myocardial perfusion imaging and risk factors, could be related to underlying coronary ischemia. This needs to be further evaluated. I discussed the patient about the option of optimizing medical treatment versus doing a cardiac catheterization to further evaluate the coronary status and decide on further management. The patient is concerned ab out the ongoing symptoms. He and his would like him to have the angiogram and then decide on the management. The risk of bleeding, hematoma, vascular injury, myocardial infarction, CVA, renal failure and other concomitant complications were explained in detail. Patient understood this well and consented to proceed. Imaging ordered and scheduled angiogram for the morning. Status: Acute (2) Elevated blood pressure reading: Blood pressure is still stage II. I may start him on carvedilol 6.25 mg p.o. now and twice daily. We will be monitoring her blood pressure closely. Status: Acute (3) Dyslipidemia: Patient is on Lipitor. This may be continued. Status: Acute Plan Other problems are Morbid obesity Smoking abuse Family history of premature atherosclerotic heart disease Based on the results of the above tests and the patient's clinical progress, further recommendations will be made. Thank you for the opportunity to follow this patient make these recommendations Consult Attestations Medical Necessity Statement: Patient requires continued hospital stay for c lose monitoring and further management Coding Level of Care Code Acute Operations Superintendent for Myesha Mcneal Diagnoses Chest pain R07.9 Elevated blood pressure reading R03.0 Dyslipidemia E78.5
[2021-09-30 13:47] LABS: Chol HDL Ratio 5.56 mg/dL (1.0-5.00); Cholesterol 178 mg/dL (0-200); HDL Cholesterol 32 mg/dL (60-100); LDL Cholesterol Calculated 117 mg/dL (50-129); LDL HDL Ratio 3.66 RATIO (0.00-3.22); Triglycerides 146 mg/dL (0-150)
[2021-09-30 14:10] LABS: Estmated Average Glucose 105; Hemoglobin A1C 5.3 % (4.0-6.0)
[2021-09-30 14:41] LABS: Troponin T (5th) Once 6 ng/L (0-15)
[2021-09-30] MEDS: carvedilol 6.25 mg Tablet PO (17:18)
[2021-09-30] MEDS: atorvastatin 40 mg Tablet 20 MG PO (21:40)
[2021-09-30] MEDS: enoxaparin 40 mg/0.4 mL Syringe SUBCUT (21:40)
[2021-10-01] VITALS: BP 120/74; PULSE 68; RESP 18; TEMP 36.9; O2SAT 96
[2021-10-01 04:00] VITALS: BP 133/77; PULSE 67; RESP 18; TEMP 36.6; O2SAT 95
[2021-10-01 06:00] VITALS: PULSE 65
[2021-10-01 07:39] VITALS: BP 131/71; PULSE 76; RESP 17; TEMP 36.9; O2SAT 94
--- NOTE | 2021-10-01 08:22 | XACV_ITS ---
Exam Room: [facility] Ht: 198 cm Wt: 161 kg BSA: 3.04 m2 Gender: Male : 1980 Any Known Allergies: No known allergies Exam Priority: Routine Procedure(s): Procedure Description: Diagnostic procedure Procedure Description: Left Heart Catheterization Procedure Description: Coronary Angiography Reza BAIN; Diagnostic Cath Status: Urgent Diagnostic Findings * The left main is a medium caliber vessel with no significant stenotic lesions. * The left anterior descending artery is a medium caliber vessel which appears to wrap around the LV apex minimally. No significant stenotic lesions were noted. * The left circumflex artery is a medium caliber vessel with no significant stenotic lesions. * The right coronary artery is a medium caliber dominant vessel which also was found to have no significant stenotic lesions. Conclusions 1. 41-year-old white male with a history of smoking abuse, dyslipidemia, morbid obesity and a strong family history for premature atherosclerotic heart disease presenting with a new onset of chest pain. Myocardial perfusion imaging revealed a small area of reversible defect in the LV apex. Because of the patient's ongoing chest symptoms, in order to further evaluate the coronary status, a cardiac catheterization was recommended. The findings are as follows. 2. No significant obstructive coronary artery disease. Right dominant coronary circulation. Diagnostic RX Recommendation: medical therapy and/or counseling Pressures Phase:Rest AO : 87 / 61 ( 73 ) @ 10:35:00 AM 122 / 60 ( 78 ) @ 10:39:00 AM LV : 134 / -7 / 12 @ 10:39:00 AM Clinical Evaluation EBL: 5mL-10mL Procedural Details Procedure Consent Obtained. Current Diagnosis : Chest Pain. Pre-Procedure Time Out. Identified patient by full name and date of as verbalized by the patient/guarantor. Does the consent match the physician's order: Yes. Accurate & Complete Informed Consent: Yes. Inpatient/Outpatient History & Physical on Chart: Yes. If H&P is completed, is and addenduem needed: No; If yes, is the addendum complete: N/A. Visualize and Verify Site with Patient/Guarantor: N/A. Relevant Radiology Images available: Yes. Pre-op teaching completed and patient verbalized understanding. The risks, benefits, and alternatives of sedation and/or procedure were discussed by physician. The patient agrees to continue. Procedure started. [facility] Clinical Fraility Score: 3: Managing Well. 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 Chest Pain Symptom Assessment: Typical Angina Symptoms. Correct patient, site and procedure confirmed by cath team. Current diagnosis: Chest Pain. PERRLA. Strong, equal hand security program manager bilaterally. Lungs clear x 5 lobes. IV Site on Arrival: 18 gauge in the left anticubital. IV Fluids: 0.9% NaCl at KVO. 0 mL infused prior to metallurgical lab technician. Oxygen started at 2liters/min via nasal canula. right groin was prepped with chloroprep then draped in the usual sterile fashion. right radial was prepped with chloroprep then draped in the usual sterile fashion. Physician arrived. Baseline sample Acquired. HR: 75 BPM. Physician scrubbed in. Immediate Pre-Procedure Time Out. Correct Patient: Yes; Correct Procedure: Yes; Correct Site: Yes; Correct Patient Position: Yes; Correct Supplies: Yes; Dried Flammable Prep: Yes; Blood Products Available: N/A;. Lidocaine 1% infiltrated to the right radial. Arterial access obtained. A 6 libyan TIG catheter in over wire. Multiple views taken of left coronary artery. EDP Sample taken: LV 134/-7,12; HR: 77 BPM; SpO2: 93%. Pullback taken: LV Off; AO Off; Mean: , Peak to Peak: , SEP: ; HR: 76 BPM; SpO2: 93%. Catheter removed over the standard wire. A 5 libyan Angled Pig catheter in over wire. Multiple views taken of right coronary artery. Catheter removed over the standard wire. Physician scrubbed out. A TR Band was successful obtaining hemostatsis at the Right Radial artery insertion site. Post Procedure: Pulses reassessed and unchanged. PERRLA. Strong, equal hand security program manager bilaterally. No VTE prophylaxis required. Medication's Wasted: Nitro = 49.8 mg. Medication's Wasted: Heparin = 1000 units. Total IV fluids: 250 mL. Contrast type used: Omnipaque 300 mgI/mL, 500 mL bottle. Complications: None. Estimated blood loss: 5mL-10mL. Responsiveness - Normal response to verbal stimuli; alert and oriented, PERRLA. Airway - Unaffected, no intervention required; spontaneous ventilation. Circulation: W/N/L, pulses unchanged. Nausea/Vomiting: No. Procedure completed. Patient transferred by wheelchair to ICU. Vital chart was stopped. Access Site Site: Right Radial artery Sheath Size: 6 Fr Hemostasis Method: TR Band Hemostasis Success: Successful Procedure Medications Start: 9:21 AM Stop: 9:21 AM Medication: Benadryl Amount: 50 mg Route: I.V. Start: 9:23 AM Stop: 9:23 AM Medication: Versed Amount: 1 mg Route: I.V. Start: 9:23 AM Stop: 9:23 AM Medication: Fentanyl Amount: 50 mcg Route: I.V. Start: 9:30 AM Stop: 9:30 AM Medication: Nitrogylcerin Amount: 200 mcg Route: I.A. Start: 9:30 AM Stop: 9:30 AM Medication: Verapamil Amount: 5 mg Route: I.A. Start: 9:33 AM Stop: 9:33 AM Medication: Heparin Amount: 5000 units Route: I.V. Start: 9:34 AM Stop: 9:34 AM Medication: Versed Amount: 1 mg Route: I.V. Start: 9:34 AM Stop: 9:34 AM Medication: Fentanyl Amount: 50 mcg Route: I.V. I, the attending physician, have reviewed and verified all procedure medications. Yes, all medications given per verbal order History/Risk Factors Hypertension: Yes Dyslipidemia: Yes Peripheral Arterial Disease (PAD): No Myocardial Infarction (SC): No Obesity: No Renal Disease: No Prior Interventions PCI: No CABG: No Valve Surgery: No Report Signatures Finalized by Dr Samuel Cobb MD LOCATED [facility]IN [facility] on 10/01/2021 09:19 PM
[2021-10-01] MEDS: carvedilol 6.25 mg Tablet PO (08:28)
[2021-10-01] MEDS: aspirin 81 mg EC Tablet PO (08:28)
[2021-10-01] MEDS: lisinopril 5 mg Tablet 10 MG PO (08:29)
--- NOTE | 2021-10-01 09:14 | W.PM.OPSUD ---
Surgery/Procedure H&P Update DATE OF PROCEDURE: October 01, 2021 DATE H&P PERFORMED: 09/30/21 H&P UPDATE INFORMATION: I have reviewed H&P completed within last 30 days, I have examined patient prior to procedure and No changes to prior documentation PREOP DIAGNOSIS: possible ASHD PRIMARY INDICATION FOR PROCEDURE: CP/ abnormal stress test PLANNED PROCEDURE: Operation Date: 10/01/21 12:00 Proposed Procedures p Cardiac Catheterization(Not Applicable) - Samuel Cobb MD PATIENT REASSESSED PRIOR TO SEDATION, WITH NO CHANGE NOTED: Yes PHYSICAL EXAM: alert, oriented x 3, clear to auscultation bilaterally and regular rate & rhythm AIRWAY EVAL/ANESTHESIA PLAN: normal airway, see other exam findings, ASA II, Monitored Anesthesia, Local Anesthesia, Risks, benefits & alternatives of sedation and/or procedure discussed and Patient agrees to continue as planned
--- NOTE | 2021-10-01 10:14 | PC.NURSE ---
Pt received from laboratory chemical assistant, AAOX4. assisted to bed with standby assist. TR band in place to r wrist, 16ml air, no hematoma noted, radial pulse palpable. PIV to LAC, flushes well. Pt connected to ICU monitor. VSS. Pt denies any needs. C/O benadryl doing a number on him . CLWR, SRx3. Will continue to monitor.
--- NOTE | 2021-10-01 10:55 | P.DS_ITS ---
Discharge Providers Date of Admission: 09/29/21 18:12 Date of Discharge: October 01, 2021 Attending Provider at Admission: Roxanna Torrez MD Attending Provider at Discharge: Roxanna Torrez MD Diagnoses at Discharge Discharge Diagnosis (1) Chest pain: Status: Acute (2) Elevated blood pressure reading: Status: Acute (3) Dyslipidemia: Status: Acute Reason for Visit Reason for Visit: Chest pain Left side tingling and numb Hospital Course Hospital Course 43 male who presented to hospital chief complaint of chest tightness and numbness of his arms bilaterally. Patient does not carry significant past medical surgical history. His troponins were unremarkable. Stress test showed colten-infarct ischemic area in apical region. Echo unremarkable. I consulted cardiology because of his significant family history. Coronary angiogram was done by Dr. Cobb. Official report is pending however Dr. Cobb has called me to tell me about the results. His coronary vessels are clean, no signs of stenosis. No stents were placed. Patient most likely has cervical radiculopathy with numbness in his both arms. At this point would recommend addition of lisinopril and Coreg low-dose. He has stage II hypertension. He would definitely benefit from weight loss and reduction in his BMI. D-dimer unremarkable Hemoglobin A1c 5.3 LDL 117, triglyceride 146. His lipid panel showed 2% low risk for 10-year ASCVD, lifestyle modification exercise will increase his HDL I will have him follow-up with his PCP for recommendation regarding his atorvastatin for now I will add low-dose 20 mg at bedtime Physical Exam Narrative: Patient is awake and alert Morbid obesity Nonfocal neuro exam Soft abdomen Satting well on room air Pleasant and cooperative No signs of meningitis or stroke S1, S2 Discharge Data Studies Completed and Pending Completed Studies During Hospitalization Category Date Time Status Sestamibi Stress Test Request Routine Exams 09/30/21 06:52 Draft XR chest 1V portable [id number] Urgent Exams 09/29/21 15:23 Completed NM curt perf SPECT r/s* [id number] Routine Nuc Med 09/30/21 07:00 Completed CV. echo wo/w contrast [id number] Routine Ultrasound 09/29/21 21:39 Completed Pending at discharge Category Date Time Status APPLIQUE SEWER request for service Routine Exams 10/01/21 08:22 Ordered Sestamibi Stress Test Request Routine Exams 09/29/21 21:39 Stop Req CV carotid duplex BI* [id number] Urgent Ultrasound 09/29/21 21:39 Taken Radiology Impressions Chest X-Ray 09/29/21 15:23 IMPRESSION: 1. No acute process identified. Laboratory Results WBC 10.2 10^3/uL (4.0-10.0) H 09/30/21 02:18 RBC 4.56 10^6/uL (4.1-5.3) 09/30/21 02:18 Hgb 13.9 g/dL (11.7-16.6) 09/30/21 02:18 Hct 43.4 % (42.0-52.0) 09/30/21 02:18 MCV 95.2 fl (80-94) H 09/30/21 02:18 MCH 30.5 pg (28.0-34.0) 09/30/21 02:18 MCHC 32.0 g/dL (30.0-36.0) 09/30/21 02:18 RDW 13.2 % (12.1-15.1) 09/30/21 02:18 Plt Count 194 10^3/cmm (130-400) 09/30/21 02:18 MPV 10.3 fL (7.4-10.4) 09/30/21 02:18 Neut % (Auto) 61.5 % 09/30/21 02:18 Lymph % (Auto) 29.2 % 09/30/21 02:18 [place] % (Auto) 8.1 % 09/30/21 02:18 Eos % (Auto) 0.6 % 09/30/21 02:18 Baso % (Auto) 0.4 % 09/30/21 02:18 Neut # (Auto) 6.26 10^3/uL (1.8-7.7) 09/30/21 02:18 Lymph # (Auto) 3.0 10^3/uL (0.8-4.8) 09/30/21 02:18 [place] # (Auto) 0.8 10^3/uL (0.2-0.9) 09/30/21 02:18 Eos # (Auto) 0.1 10^3/uL (0.0-0.8) 09/30/21 02:18 Baso # (Auto) 0.0 10^3/uL (0.0-0.1) 09/30/21 02:18 Nucleated RBC % (auto) 0 % 09/30/21 02:18 Nucleated RBCs # 0.0 /100WBC 09/30/21 02:18 D-Dimer 0.34 ug/mIFEU (0-0.59) 09/29/21 20:18 Sodium 140 mmol/L (136-145) 09/30/21 02:18 Potassium 3.9 mmol/L (3.5-5.1) 09/30/21 02:18 Chloride 105 mmol/L (98-107) 09/30/21 02:18 Carbon Dioxide 26 mmol/L (22-29) 09/30/21 02:18 Anion Gap 12.9 (5-19) 09/30/21 02:18 BUN 8 mg/dL (6-20) 09/30/21 02:18 Creatinine 0.7 mg/dL (0.7-1.2) 09/30/21 02:18 GFR Calculation 124.9 mL/min (90-130) 09/30/21 02:18 Glucose 101 mg/dL (65-115) 09/30/21 02:18 POC Glucose 105 mg/dL (70-110) 09/30/21 11:20 Estimat Average Glucose 105 09/30/21 02:18 Hemoglobin A1c 5.3 % (4.0-6.0) 09/30/21 02:18 Calculated Osmolality 288 mOsm/kg (285-295) 09/30/21 02:18 Calcium 8.9 mg/dL (8.5-10.5) 09/30/21 02:18 Magnesium 2.1 mg/dL (1.7-2.3) 09/30/21 02:18 Troponin T Gen 5 ng/L 6 ng/L (0-15) 09/30/21 13:53 Troponin T Baseline 6 ng/L (0-15) 09/29/21 14:25 Troponin T 120 Minute 6.00 ng/L (0-15) 09/29/21 16:57 Delta Troponin T 0 ABS# (0-10) 09/29/21 16:57 Troponin T Hi Sens 6Hr 6.00 ng/L (0-15) 09/29/21 20:18 Troponin T Hi Sens 6Hr Delta 0 ng/L (0-12) 09/29/21 20:18 Triglycerides 146 mg/dL (0-150) 09/30/21 02:18 Cholesterol 178 mg/dL (0-200) 09/30/21 02:18 LDL Cholesterol, Calc 117 mg/dL (50-129) 09/30/21 02:18 HDL Cholesterol 32 mg/dL (60-100) L 09/30/21 02:18 LDL/HDL Ratio 3.66 RATIO (0.00-3.22) H 09/30/21 02:18 Cholesterol/HDL Ratio 5.56 mg/dL (1.0-5.00) H 09/30/21 02:18 Vitamin B12 465 pg/mL (232-1245) 09/29/21 20:18 TSH 0.88 uIU/mL (0.27-4.20) 09/29/21 14:25 Urine Opiates Screen Negative ng/mL (Negative) 09/29/21 18:30 Ur Barbiturates Screen Negative ng/mL (Negative) 09/29/21 18:30 Ur Phencyclidine Scrn Negative ng/mL (Negative) 09/29/21 18:30 Ur Amphetamines Screen Negative ng/mL (Negative) 09/29/21 18:30 U Benzodiazepines Scrn Negative ng/mL (Negative) 09/29/21 18:30 Urine Cocaine Screen Negative ng/mL (Negative) 09/29/21 18:30 U Marijuana (THC) Screen Negative ng/mL (Negative) 09/29/21 18:30 SARS-CoV-2 Ag (Rapid) Negative (Negative) 09/29/21 21:42 Vitals Last Vital Signs Temp 98.4 F 10/01/21 07:39 Pulse 76 10/01/21 07:39 Resp 17 10/01/21 07:39 BP 131/71 10/01/21 07:39 Pulse Ox 94 10/01/21 07:39 O2 Del Method 10/01/21 07:39 Discharge Plan Discharge Patient Disposition: Home Condition: Stable Prescriptions: New atorvastatin 40 mg Tablet 20 mg PO BEDTIME Qty: 60 0RF carvedilol 6.25 mg Tablet 6.25 mg PO BID Qty: 60 4RF aspirin 81 mg Tablet,Delayed Release (Dr/Ec) 81 mg PO DAILY Qty: 60 0RF lisinopril 5 mg Tablet 10 mg PO DAILY Qty: 60 4RF No Action No Known Home Medications Discharge Orders: Discharge Order (Routine); Ordered 10/01/21 Ordered By: Roxanna Torrez Discharge Diet: Cardiac Patient Instructions: Opioid Safety Discharge Attestations Time Spent in Discharge Care*: less than 30 min Quality Metrics Clinical Quality Measures [ No reported AMI, CVA or VTE this stay] Coding Level of Care Code Acute Chg FW DC note Diagnoses Chest pain R07.9 Elevated blood pressure reading R03.0 Dyslipidemia E78.5
--- NOTE | 2021-10-01 12:45 | PC.NURSE ---
All air removed from TR band, no bleeding or oozing noted. Pt education provided r/t TR band and weight and activity restrictions. Pt verbalizes understanding. Will monitor.
--- NOTE | 2021-10-01 13:33 | PC.NURSE ---
DC instructions given, PIV removed, tolerated well. Awaiting ride.
[2021-10-01 13:53] VITALS: PULSE 66
--- NOTE | 2021-10-01 14:09 | PC.NURSE ---
Pt wheeled out to waiting private vehicle. No issues.
== END 2021-10-01 14:04 | disposition home or self-care (01) ==
LOC: ER 20:16 → MEDSURG 20:51 → ICU 10-01 09:39
PROVIDERS: Internal Medicine Cardiovascular Disease; Admitting Provider Internal Medicine; Emergency Provider Emergency Medicine; Visit Provider Internal Medicine
DX: R07.89 Other chest pain (principal); R03.0 Elevated blood-pressure reading, without diagnosis of hypertension; E78.5 Hyperlipidemia, unspecified; E66.01 Morbid (severe) obesity due to excess calories; F17.210 Nicotine dependence, cigarettes, uncomplicated; Z82.49 Family history of ischemic heart disease and other diseases of the circulatory system
CPT/HCPCS: 36415; 36416; 71045; 78452; 80048; 80061; 80306; 82607; 82962; 83036; 83735; 84443; 84484; 85025; 85378; 87426; 93005; 93017; 93306; 93452; 93458; 93880; 94760; 96360; 96372; 99152; 99153; 99285; A9500; C1769; C1887; C1894; C8929; G0378; J1200; J1644; J1650; J2250; J2785; J3010; J3490; J7030; Q9956; Q9967

== ENCOUNTER → 2021-10-09 11:51 | Outpatient (BNVA) | payer MEDICAID, SELFPAY | PROVIDERS: Visit Provider Nurse Practitioner Family | DX: R07.89 Other chest pain (principal) | CPT/HCPCS: 36415; 80048 ==

== ENCOUNTER 2021-12-11 06:23 | Day surgery (SDC) | payer BC, MEDICAID, SELFPAY ==
[2021-12-10 08:08] VITALS: BMI 41.5
--- NOTE | 2021-12-11 06:33 | W.PM.OPSUD ---
Surgery/Procedure H&P Update DATE OF PROCEDURE: December 11, 2021 DATE H&P PERFORMED: 11/18/21 H&P UPDATE INFORMATION: I have reviewed H&P completed within last 30 days, I have examined patient prior to procedure and No changes to prior documentation PREOP DIAGNOSIS: Atypical chest pain and bleeding per rectum PRIMARY INDICATION FOR PROCEDURE: The same PLANNED PROCEDURE: Operation Date: 12/11/21 08:00 Proposed Procedures p EGD and colonoscopy [id number],R07.2,K62.5(Not Applicable) - Rikki Manuel MD s Colonoscopy(Not Applicable) - Rikki Manuel MD
[2021-12-11 06:42] VITALS: BP 127/74; PULSE 78; RESP 18; TEMP 36.5; O2SAT 96
[2021-12-11] MEDS: sodium chloride 0.9% 1,000 ML 30 ML IV (06:50)
--- NOTE | 2021-12-11 07:39 | P.ANESASSM_ITS ---
Pre-Anesthetic Assessment Height/Weight: Height 1.98 m Weight 163.293 kg Temp Pulse Resp BP Pulse Ox O2 Del Method 97.7 F 78 18 127/74 96 12/11/21 06:42 12/11/21 06:42 12/11/21 06:42 12/11/21 06:42 12/11/21 06:42 12/11/21 06:42 Preop Diagnosis: Atypical chest pain and bleeding per rectum Operation Date: 12/11/21 08:00 Proposed Procedures p EGD and colonoscopy [id number],R07.2,K62.5(Not Applicable) - Rikki Manuel MD s Colonoscopy(Not Applicable) - Rikki Manuel MD Familial anesthetic complications: none Was Clonidine taken within 24 hours: N/A Last intake: Intake Last Liquid Date 12/10/21 Last Liquid Time 23:30 Last Solid Date 12/09/21 Last Solid Time 22:00 Social Tobacco and No alcohol 2 pack(s) per day Exam alert and oriented x 3 Airway Submandibular: within normal limits Cervical ROM: within normal limits Mallampati: Class II Dentition: full History/ROS No significant history except as noted CV/HEM Hypertension None reported Hepatic None reported GI Gastroesophageal Reflux Disease Metabolic Hyperlipidemia and Morbid Obesity [facility] [place] [place] None reported Neuropsych None reported Anesthetic Plan ASA status: 3 Anesthesia: Anesthesia Evaluation and MAC Medications/Allergies Home Medications Medication Instructions Recorded Confirmed Last Taken Type aspirin 81 mg tablet,delayed 81 mg PO DAILY #60 tabs 10/01/21 12/11/21 12/09/21 Rx release atorvastatin 40 mg tablet 20 mg PO BEDTIME #60 tabs 10/01/21 12/11/21 12/10/21 Rx carvedilol 6.25 mg tablet 6.25 mg PO BID #60 tabs 10/01/21 12/11/21 12/10/21 Rx lisinopril 5 mg tablet 10 mg PO DAILY #60 tabs 10/01/21 12/11/21 12/10/21 Rx pantoprazole 40 mg tablet,delayed 40 mg PO DAILY #30 tabs 11/11/21 12/11/21 12/10/21 Rx release (Protonix) sucralfate 1 gram tablet (Carafate) 1 g PO TID PRN reflux #90 tabs 11/11/21 12/11/21 12/10/21 Rx multivitamin 1 tab PO DAILY 11/25/21 12/11/21 12/10/21 History omega 7-vcy-pvf-fish oil 1,000 mg 1 cap PO DAILY 11/25/21 12/11/21 12/10/21 History (120 mg-180 mg) capsule (Fish Oil) tretinoin 0.1 % topical cream 1 applic topical DAILY #45 grams 11/25/21 12/11/21 Unknown Rx Allergies Allergy/AdvReac Type Severity Reaction Status Date / Time No Known Allergies Allergy Verified 12/11/21 06:40 Current Medications Generic Name Dose Route Start Last Admin Trade Name Freq PRN Reason Stop Dose Admin Sodium Chloride 1,000 mls @ 30 mls/hr 12/11/21 06:30 12/11/21 06:50 Sodium Chloride 0.9% IV 30 mls/hr .Q24H JAYJAY Administration PFSH Anesthesia Medical History Atypical chest pain Chest pain Dyslipidemia Elevated blood pressure reading Essential hypertension No pertinent past medical history No pertinent past medical history Surgical History No significant past surgical history Family History Family/Other CAD (coronary artery disease) uncle at 48, CHF Cancer Lung disease Stroke Father CAD (coronary artery disease) Diabetes Grandfather CAD (coronary artery disease) Mother Stroke Cancer Denies family history of Clotting disorder Dementia Chronic kidney disease (CKD) Suicide Anesthesia complication Bleeding disorder Social History Smoking and tobacco status: current every day smoker cigarettes Packs smoked per day: 1 Alcohol intake: former Lives independently: Yes Household members: spouse Housing: House Marital status: History of recent travel: No Data Anesthesia Cardiac Studies: Echocardiogram 09/29/21 Sestamibi Stress Test (Cardiology) 09/30
[2021-12-11 08:18] VITALS: BP 105/61; PULSE 61; RESP 16; TEMP 36.5; O2SAT 90
[2021-12-11 08:23] VITALS: BP 108/25; PULSE 63; RESP 18; O2SAT 93
[2021-12-11 08:33] VITALS: BP 117/59; PULSE 64; RESP 18; O2SAT 96
--- NOTE | 2021-12-11 09:02 | ANE.PACU2 ---
Inpatient post-anesthesia follow up: Airway intact: Yes Vital signs: Temperature 97.7 F Pulse Rate 64 Respiratory Rate 18 Blood Pressure 117/59 Pulse Oximetry 96 Oxygen Delivery Me thod Room Air Oxygen Flow Rate Fraction of Inspir ed Oxygen Hydration adequate: Yes Nausea and vomiting: No Pain level: 1 Mental status: Baseline
== END 2021-12-11 08:50 | disposition home or self-care (01) ==
PROVIDERS: PCP Nurse Practitioner Family; Visit Provider Surgery
PROC: 0DJ08ZZ Inspection of Upper Intestinal Tract, Via Natural or Artificial Opening Endoscopic (ICD-10-PCS; CPT 43235; principal; 2021-12-11 08:00)
PROC: 0DJD8ZZ Inspection of Lower Intestinal Tract, Via Natural or Artificial Opening Endoscopic (ICD-10-PCS; CPT 45378; 2021-12-11 08:00)
DX: K62.5 Hemorrhage of anus and rectum (principal); K56.41 Fecal impaction; K21.00 Gastro-esophageal reflux disease with esophagitis, without bleeding; K29.50 Unspecified chronic gastritis without bleeding; I10 Essential (primary) hypertension; K21.9 Gastro-esophageal reflux disease without esophagitis; E78.5 Hyperlipidemia, unspecified; E66.01 Morbid (severe) obesity due to excess calories; Z68.41 Body mass index [BMI] 40.0-44.9, adult; Z79.82 Long term (current) use of aspirin; F17.210 Nicotine dependence, cigarettes, uncomplicated
CPT/HCPCS: 43239; 45378; 88305; J2704; J7030

== ENCOUNTER → 2022-03-24 15:38 | Outpatient (BNVA) | payer BC, MEDICAID, SELFPAY | PROVIDERS: PCP Nurse Practitioner Family; Visit Provider Nurse Practitioner Family | DX: I10 Essential (primary) hypertension (principal); F41.9 Anxiety disorder, unspecified | CPT/HCPCS: 80053; 80061; 84443; 85025 ==

== ENCOUNTER → 2022-07-05 11:32 | Outpatient (BNVA) | payer BC, MEDICAID, SELFPAY | PROVIDERS: PCP Nurse Practitioner Family; Visit Provider Nurse Practitioner Family | DX: I10 Essential (primary) hypertension (principal) | CPT/HCPCS: 80053; 80061; 84443; 85025 ==

== ENCOUNTER 2022-08-22 14:38 | Emergency (ER) | payer BC, MEDICAID, SELFPAY ==
[2022-08-22 14:52] VITALS: BP 151/86; PULSE 80; RESP 17; TEMP 36.9; O2SAT 97; BMI 41.5
--- NOTE | 2022-08-22 15:00 | W.ED.ANIMALB ---
HPI - Animal Bite General: Chief Complaint: Animal Bite Stated Complaint: bit by bat (has bat with him) Time Seen by Provider: 08/22/22 14:39 History of Present Illness: Patient is a 42-year-old male comes to the ED after being bit by a bat. Patient says he was out mowing and saw a bat that appeared to be caught on a fence pole. He went to try to help it and it bit the tip of his index finger of left hand. He denies any other injury or trauma. There was no bleeding. No other acute concerns noted. Patient here to start rabies prophylaxis. Associated symptoms: Deny chills, fever(s) or headache(s) Review of Systems Const: Denies: fever(s), chills or fatigue Eyes: Denies: change in vision or eye discomfort ENMT: Denies: throat pain, odynophagia, nasal discharge or nasal congestion Card: Denies: chest pain, palpitations, edema, swelling of feet/ankles, dyspnea on exertion or orthopnea Resp: Denies: dyspnea, productive cough or non-productive cough GI: Denies: abdominal pain, nausea, vomiting, diarrhea, constipation or hematochezia : Denies: flank pain, difficulty urinating, dysuria or hematuria Musc: Denies: neck pain, back pain or extremity swelling Skin/Breast: Reports: new lesions (Bat bite on finger); Denies: rash Neuro: Denies: headache(s), numbness in extremities or weakness in extremities PFS ED PFSH: Medical History Atypical chest pain Chest pain Dyslipidemia Elevated blood pressure reading Essential hypertension No pertinent past medical history No pertinent past medical history Surgical History No significant past surgical history Family History Family/Other CAD (coronary artery disease) uncle at 48, CHF Cancer Lung disease Stroke Father CAD (coronary artery disease) Diabetes Grandfather CAD (coronary artery disease) Mother Stroke Cancer Denies family history of Clotting disorder Dementia Chronic kidney disease (CKD) Suicide Anesthesia complication Bleeding disorder Social History Smoking and tobacco status: current every day smoker cigarettes Packs smoked per day: 1 Alcohol intake: former Substance/Drug Use: never Lives independently: Yes Household members: spouse Housing: House Marital status: Physical Exam Const: COMMON NORMALS: patient oriented x3 HENMT: COMMON NORMALS: normocephalic HEAD & SCALP: normocephalic MOUTH: Normal oral and palatal mucosa present THROAT: posterior oropharynx normal and uvula midline Neck/C-Spine: COMMON NORMALS: supple GENERAL: Yes normal visual inspection Resp: COMMON NORMALS: normal respiratory effort, No retractions, No use of accessory muscles and clear to auscultation bilaterally AUSCULTATION: clear to auscultation bilaterally Cardio: COMMON NORMALS: regular rate, regular rhythm, S1 normal heart sound present, S2 normal heart sound present, No gallops present (Cardio), No clicks present (Cardio), No murmurs present (Cardio) and Peripheral pulses 2+ throughout RATE: regular rate RHYTHM: regular rhythm HEART SOUNDS: S1 normal heart sound present and S2 normal heart sound present PERIPHERAL PULSES: Peripheral pulses 2+ throughout GI: COMMON NORMALS: Normal to inspection, nondistended, normoactive bowel sounds present, Soft to palpation, non-tender and no masses PALPATION: Yes Soft to palpation : COMMON NORMALS: Yes no CVA tenderness BLADDER/KIDNEY EXAM: Yes no CVA tenderness Back/Pelvis: COMMON NORMALS: no CVA tenderness Extremity: COMMON NORMALS: normal to inspection and full ROM NARRATIVE EXTREMITY EXAM: No visible bat bite injury on left index finger. Neuro: COMMON NORMALS: patient oriented x3 GAIT: Yes Normal gait present Skin: GENERAL SKIN EXAM: dry skin Course Vital Signs: Vital signs: Vital Signs Temperature 98.4 F 08/22/22 14:52 Pulse Rate 80 08/22/22 14:52 Respiratory Rate 17 08/22/22 14:52 Blood Pressure 151/86 08/22/22 14:52 Pulse Oximetry 97 08/22/22 14:52 Oxygen Delivery Me thod Room Air 08/22/22 14:52 MDM - Animal Bite Medical Decision Making Patient is a 42-year-old male comes to the ED after being bit by a bat. Patient says he was out mowing and saw a bat that appeared to be caught on a fence pole. He went to try to help it and it bit the tip of his index finger of left hand. He denies any other injury or trauma. There was no bleeding. No other acute concerns noted. Patient here to start rabies prophylaxis. Vitals stable. Patient appears nontoxic in no acute distress or pain. Rest of exam is benign. Patient was given rabies Ig and rabies vaccine here in the ED he was stable for discharge home and diagnosed with bat bite of finger. He was told when to return to the ED for the next rabies shot. He was sent home with a prescription for Augmentin. Patient understood agree with plan. Discharge Plan Discharge Patient Disposition: Home Clinical Impression: Rabies, need for prophylactic vaccination against Bat bite of finger Qualifiers: Encounter type: initial encounter Qualified Code(s): S61.259A - Open bite of unspecified finger without damage to nail, initial encounter Condition: Stable Prescriptions: New Augmentin 500-125 mg tablet 1 tab PO BID 7 Days Qty: 14 0RF No Action multivitamin Tablet 1 tab PO DAILY omega 8-lto-foz-fish oil [Fish Oil] 1,000 mg (120 mg-180 mg) capsule 1 cap PO DAILY sucralfate [Carafate] 1 gram tablet 1 g PO TID PRN (Reason: reflux) Qty: 90 2RF tretinoin 0.1 % cream 1 applic topical DAILY Qty: 45 4RF Rx Instructions: apply to clean, dry face nightly famotidine 20 mg tablet 20 mg PO BID Qty: 60 5RF fluoxetine 20 mg capsule 20 mg PO DAILY Qty: 60 5RF lisinopril 10 mg tablet 10 mg PO DAILY Qty: 30 5RF hydroxyzine pamoate 25 mg capsule 25 mg PO TID PRN (Reason: itching) Qty: 90 0RF atorvastatin 40 mg Tablet 20 mg PO BEDTIME Qty: 60 0RF aspirin 81 mg Tablet,Delayed Release (Dr/Ec) 81 mg PO DAILY Qty: 60 0RF Hold Instructions: Resume on 12/16/21. Discharge Orders: Discharge ED (Routine); Ordered 08/22/22 Ordered By: Abhijeet Bruner Referrals: Lulú Cuba FNP-C [Primary Care Provider] - Discharge Diet: Regular Discharge Activity: Increase activity as tolerated Patient Instructions: Animal Bite (ED) Activity Restrictions/Additional Instructions: Follow-up with medical provider as directed. return to the ED for rabies vaccination dose on day 3 (August 25), 7 (August 29) and 14 (September 05). take medications as prescribed. Return to the ER or your medical provider if condition worsens. Please read and understand discharge instructions. If any questions, please ask. Coding Level of Care Code ED Livestock Nutritionist for Myesha Mcneal
[2022-08-22] MEDS: rabies vaccine 2.5 unit SDV IM (15:51)
== END 2022-08-22 15:53 | disposition home or self-care (01) ==
PROVIDERS: Emergency Provider Physician Assistant; PCP Nurse Practitioner Family
DX: S61.251A Open bite of left index finger without damage to nail, initial encounter (principal); W55.81XA Bitten by other mammals, initial encounter; Z29.14 Encounter for prophylactic rabies immune globulin; Z20.3 Contact with and (suspected) exposure to rabies; Z23 Encounter for immunization; Z79.82 Long term (current) use of aspirin; F17.210 Nicotine dependence, cigarettes, uncomplicated; I10 Essential (primary) hypertension; E78.5 Hyperlipidemia, unspecified
CPT/HCPCS: 90375; 90471; 90675; 99283

== ENCOUNTER 2022-08-25 08:55 | Emergency (ER) | payer BC, MEDICAID, SELFPAY ==
[2022-08-25 09:07] VITALS: BP 134/87; PULSE 75; RESP 16; TEMP 36.5; O2SAT 97
--- NOTE | 2022-08-25 09:09 | ED_ITS ---
HPI - General Adult General: Chief complaint: Recheck/Abnormal Lab/Rx Stated complaint: 2nd rabies shot Time Seen by Provider: 08/25/22 08:58 History of Present Illness: Patient is a 42-year-old male comes to the ED to get second rabies shot. Patient was seen here in the ED back on August 22 after getting a bat bite on finger of left hand. He was given rabies Ig and rabies vaccine at that visit. He denies any complaints with bat bite on finger and says that is healing up well. He endorses some generalized body aches after rabies shot that lasted for couple hours. Denies any other complaints after rabies shot. Denies any current complaints or symptoms. Associated symptoms: Deny chest pain, dyspnea, headache(s), nausea, rash, palpitations or vomiting Review of Systems Const: Denies: fever(s), chills or fatigue Eyes: Denies: change in vision or eye discomfort ENMT: Denies: throat pain, odynophagia, nasal discharge or nasal congestion Card: Denies: chest pain, palpitations, edema, swelling of feet/ankles, dyspnea on exertion or orthopnea Resp: Denies: dyspnea, productive cough or non-productive cough GI: Denies: abdominal pain, nausea, vomiting, diarrhea, constipation or hematochezia : Denies: flank pain, difficulty urinating, dysuria or hematuria Musc: Denies: neck pain, back pain or extremity swelling Skin/Breast: Denies: rash or new lesions Neuro: Denies: headache(s), numbness in extremities or weakness in extremities PFSH ED PFSH: Medical History Atypical chest pain Chest pain Dyslipidemia Elevated blood pressure reading Essential hypertension No pertinent past medical history No pertinent past medical history Surgical History No significant past surgical history Family History Family/Other CAD (coronary artery disease) uncle at 48, CHF Cancer Lung disease Stroke Father CAD (coronary artery disease) Diabetes Grandfather CAD (coronary artery disease) Mother Stroke Cancer Denies family history of Clotting disorder Dementia Chronic kidney disease (CKD) Suicide Anesthesia complication Bleeding disorder Social History Smoking and tobacco status: current every day smoker cigarettes Packs smoked per day: 1 Alcohol intake: former Substance/Drug Use: never Lives independently: Yes Household members: spouse Housing: House Marital status: Physical Exam Const: COMMON NORMALS: no acute distress, patient oriented x3, healthy appearing and alert HENMT: COMMON NORMALS: normocephalic HEAD & SCALP: normocephalic MOUTH: Normal oral and palatal mucosa present THROAT: posterior oropharynx normal and uvula midline Neck/C-Spine: COMMON NORMALS: supple GENERAL: Yes normal visual inspection Resp: COMMON NORMALS: normal respiratory effort, No retractions, No use of accessory muscles and clear to auscultation bilaterally AUSCULTATION: clear to auscultation bilaterally Cardio: COMMON NORMALS: regular rate, regular rhythm, S1 normal heart sound present, S2 normal heart sound present, No gallops present (Cardio), No clicks present (Cardio), No murmurs present (Cardio) and Peripheral pulses 2+ throughout RATE: regular rate RHYTHM: regular rhythm HEART SOUNDS: S1 normal heart sound present and S2 normal heart sound present PERIPHERAL PULSES: Peripheral pulses 2+ throughout GI: COMMON NORMALS: Normal to inspection, nondistended, normoactive bowel sounds present, Soft to palpation, non-tender and no masses PALPATION: Yes Soft to palpation : COMMON NORMALS: Yes no CVA tenderness BLADDER/KIDNEY EXAM: Yes no CVA tenderness Back/Pelvis: COMMON NORMALS: no CVA tenderness Extremity: COMMON NORMALS: normal to inspection Neuro: COMMON NORMALS: patient oriented x3 SENSORIUM/ORIENTATION: Yes alert GAIT: Yes Normal gait present Skin: GENERAL SKIN EXAM: dry skin Course Vital Signs: Vital signs: Vital Signs Temperature 97.7 F 08/25/22 09:07 Pulse Rate 75 08/25/22 09:07 Respiratory Rate 16 08/25/22 09:07 Blood Pressure 134/87 08/25/22 09:07 Pulse Oximetry 97 08/25/22 09:07 Oxygen Delivery Me thod Room Air 08/25/22 09:07 [facility] - General Adult Medical Decision Making Patient is a 42-year-old male comes to the ED to get second rabies shot. Patient was seen here in the ED back on August 22 after getting a bat bite on finger of left hand. He was given rabies Ig and rabies vaccine at that visit. He denies any complaints with bat bite on finger and says that is healing up well. He endorses some generalized body aches after rabies shot that lasted for couple hours. Denies any other complaints after rabies shot. Denies any current complaints or symptoms. Vitals are stable. Patient appears healthy nontoxic and in no acute distress or pain. Rest of exam is benign. Patient was given his second rabies shot here in the ED and discharged home. He was told to follow-up on August 29 to have his third rabies shot. Patient understood and agreed with plan. Discharge Plan Discharge Patient Disposition: Home Clinical Impression: Encounter for repeat administration of rabies vaccination Condition: Stable Prescriptions: No Action multivitamin Tablet 1 tab PO DAILY omega 6-jwe-vwx-fish oil [Fish Oil] 1,000 mg (120 mg-180 mg) capsule 1 cap PO DAILY sucralfate [Carafate] 1 gram tablet 1 g PO TID PRN (Reason: reflux) Qty: 90 2RF tretinoin 0.1 % cream 1 applic topical DAILY Qty: 45 4RF Rx Instructions: apply to clean, dry face nightly famotidine 20 mg tablet 20 mg PO BID Qty: 60 5RF fluoxetine 20 mg capsule 20 mg PO DAILY Qty: 60 5RF lisinopril 10 mg tablet 10 mg PO DAILY Qty: 30 5RF hydroxyzine pamoate 25 mg capsule 25 mg PO TID PRN (Reason: itching) Qty: 90 0RF atorvastatin 40 mg Tablet 20 mg PO BEDTIME Qty: 60 0RF aspirin 81 mg Tablet,Delayed Release (Dr/Ec) 81 mg PO DAILY Qty: 60 0RF Hold Instructions: Resume on 12/16/21. Augmentin 500-125 mg tablet 1 tab PO BID 7 Days Qty: 14 0RF Discharge Orders: Discharge ED (Routine); Ordered 08/25/22 Ordered By: Abhijeet Bruner Referrals: Lulú Cuba FNP-C [Primary Care Provider] - Discharge Diet: Regular Discharge Activity: Resume usual activity Activity Restrictions/Additional Instructions: Follow-up with medical provider as directed. Return for your third rabies shot on August 29. Continue taking all medications as previously prescribed. Return to the ER or your medical provider if condition worsens. Please read and understand discharge instructions. Thank you for choosing [facility] for your healthcare needs today. Please realize this is an emergency room and that we are providing you with a medical screening exam and this may not be complete and all inclusive of all the testing and or work up that you may need to determine your ailment or severity of your illness. It is very important that you follow up as instructed or that you return to the Emergency Department should you have concerns or if your condition changes or worsens in any way. Coding Level of Care Code ED Bit Sharpener for Myesha Mcneal
[2022-08-25] MEDS: rabies vaccine 2.5 unit SDV IM (09:13)
== END 2022-08-25 09:35 | disposition home or self-care (01) ==
PROVIDERS: Emergency Provider Physician Assistant; PCP Nurse Practitioner Family
DX: Z23 Encounter for immunization (principal); Z20.3 Contact with and (suspected) exposure to rabies; S61.259D Open bite of unspecified finger without damage to nail, subsequent encounter; W55.81XD Bitten by other mammals, subsequent encounter
CPT/HCPCS: 90471; 90675; 99283

== ENCOUNTER 2022-08-29 13:41 | Emergency (ER) | payer BC, MEDICAID, SELFPAY ==
[2022-08-29 13:46] VITALS: BP 132/65; PULSE 61; RESP 16; TEMP 36.7; O2SAT 96; BMI 41.5
[2022-08-29] MEDS: rabies vaccine 2.5 unit SDV IM (14:16)
--- NOTE | 2022-08-29 20:12 | ED_ITS ---
HPI - Animal Bite General: Chief Complaint: Animal Bite Stated Complaint: 3rd rabies shot Time Seen by Provider: 08/29/22 13:53 Source: patient Mode of arrival: ambulatory Limitations: no limitations History of Present Illness: Patient presents emergency department today for his third rabies vaccination shot. Patient was originally seen and evaluated here in the emergency department for possible bat bite. He received immunoglobulin and immunization at that time. Patient has continued on his schedule and is here for his third shot. He denies any change in his condition but did have a small bruise on his left deltoid from the last injection. He has no pain with range of motion of the left shoulder. Review of Systems General: Reports: 10 or more systems reviewed and unremarkable except in HPI and below PFSH ED PFSH: Medical History Atypical chest pain Chest pain Dyslipidemia Elevated blood pressure reading Essential hypertension No pertinent past medical history No pertinent past medical history Surgical History No significant past surgical history Family History Family/Other CAD (coronary artery disease) uncle at 48, CHF Cancer Lung disease Stroke Father CAD (coronary artery disease) Diabetes Grandfather CAD (coronary artery disease) Mother Stroke Cancer Denies family history of Clotting disorder Dementia Chronic kidney disease (CKD) Suicide Anesthesia complication Bleeding disorder Social History Smoking and tobacco status: current every day smoker cigarettes Packs smoked per day: 1 Alcohol intake: former Substance/Drug Use: never Lives independently: Yes Household members: spouse Housing: House Marital status: Physical Exam Const: COMMON NORMALS: no acute distress, average body habitus and patient oriented x3 HENMT: COMMON NORMALS: normocephalic, atraumatic, hearing grossly normal bilaterally, Normal external nose present and moist oral mucous membranes HE AD & SCALP: normocephalic and atraumatic NOSE: Normal external nose present Eye: COMMON NORMALS: Equal, round and reactive pupils present, EOMs intact bilaterally and conjunctivae normal CONJUNCTIVA: Yes conjunctivae normal PUPIL: Yes Equal, round and reactive pupils present Neck/C-Spine: COMMON NORMALS: no JVD Lymph: LYMPHATIC: no lymphadenopathy noted Resp: COMMON NORMALS: normal respiratory effort, No retractions and No use of accessory muscles Cardio: COMMON NORMALS: no JVD, regular rate and regular rhythm RATE: regular rate RHYTHM: regular rhythm GI: COMMON NORMALS: Normal to inspection, nondistended, normoactive bowel sounds present : COMMON NORMALS: Yes no CVA tenderness BLADDER/KIDNEY EXAM: Yes no CVA tenderness Back/Pelvis: COMMON NORMALS: no CVA tenderness and thoraco-lumbar ROM normal Extremity: COMMON NORMALS: normal to inspection, full ROM and capillary refill normal Neuro: COMMON NORMALS: patient oriented x3 Psych: COMMON NORMALS: mental status grossly normal, Normal thought process present, cooperative, normal affect and activity/motor behavior normal THOUGHT PROCESS: Normal thought process present Skin: NARRATIVE SKIN EXAM: Small bruise to left deltoid Course Vital Signs: Vital signs: Vital Signs Temperature 98.1 F 08/29/22 13:46 Pulse Rate 61 08/29/22 13:46 Respiratory Rate 16 08/29/22 13:46 Blood Pressure 132/65 08/29/22 13:46 Pulse Oximetry 96 08/29/22 13:46 Oxygen Delivery Me thod Room Air 08/29/22 13:46 MDM - Animal Bite Medical Decision Making Patient appears to be tolerating his injections without difficulty. He is keeping his recommended schedule for these injections. He is aware of his next return date for his final immunization. He will continue to watch for any change or worsening in condition, redness of his finger, or pain. Differential Diagnosis Likely bite by animal and rabies contact Discharge Plan Discharge Patient Disposition: Home Clinical Impression: Rabies, need for prophylactic vaccination against Condition: Stable Prescriptions: No Action multivitamin Tablet 1 tab PO DAILY omega 9-gjy-khj-fish oil [Fish Oil] 1,000 mg (120 mg-180 mg) capsule 1 cap PO DAILY sucralfate [Carafate] 1 gram tablet 1 g PO TID PRN (Reason: reflux) Qty: 90 2RF tretinoin 0.1 % cream 1 applic topical DAILY Qty: 45 4RF Rx Instructions: apply to clean, dry face nightly famotidine 20 mg tablet 20 mg PO BID Qty: 60 5RF fluoxetine 20 mg capsule 20 mg PO DAILY Qty: 60 5RF lisinopril 10 mg tablet 10 mg PO DAILY Qty: 30 5RF hydroxyzine pamoate 25 mg capsule 25 mg PO TID PRN (Reason: itching) Qty: 90 0RF atorvastatin 40 mg Tablet 20 mg PO BEDTIME Qty: 60 0RF aspirin 81 mg Tablet,Delayed Release (Dr/Ec) 81 mg PO DAILY Qty: 60 0RF Hold Instructions: Resume on 12/16/21. Discharge Orders: Discharge ED (Routine); Ordered 08/29/22 Ordered By: Romi Willis Referrals: Lulú Cuba FNP-C [Primary Care Provider] - Activity Restrictions/Additional Instructions: Continue with rabies vaccination schedule as previously discussed. Coding Level of Care Code ED Cafe Or Restaurant Manager for Myesha Mcneal
== END 2022-08-29 14:23 | disposition home or self-care (01) ==
PROVIDERS: Emergency Provider Physician Assistant; PCP Nurse Practitioner Family
DX: Z29.14 Encounter for prophylactic rabies immune globulin (principal); Z20.3 Contact with and (suspected) exposure to rabies; Z23 Encounter for immunization; Z79.82 Long term (current) use of aspirin; F17.210 Nicotine dependence, cigarettes, uncomplicated; E78.5 Hyperlipidemia, unspecified; I10 Essential (primary) hypertension
CPT/HCPCS: 90471; 90675; 99283

== ENCOUNTER 2022-09-05 11:32 | Emergency (ER) | payer BC, MEDICAID, SELFPAY ==
--- NOTE | 2022-09-05 11:37 | W.ED.GENADLT ---
HPI - General Adult General: Stated complaint: last rabies shot Time Seen by Provider: 09/05/22 11:36 Source: patient Mode of arrival: ambulatory Limitations: no limitations History of Present Illness: Patient is a 42-year-old male here for his last/final rabies vaccine after he was bit by a bat to the left index finger a few weeks ago. Patient has not had any complications in regards to the bite. He has not had any adverse reactions to the vaccinations thus far. Associated symptoms: Reports no associated symptoms Review of Systems General: Reports: 10 or more systems reviewed and unremarkable except in HPI and below PFSH ED PFSH: Medical History Atypical chest pain Chest pain Dyslipidemia Elevated blood pressure reading Essential hypertension No pertinent past medical history No pertinent past medical history Surgical History No significant past surgical history Family History Family/Other CAD (coronary artery disease) uncle at 48, CHF Cancer Lung disease Stroke Father CAD (coronary artery disease) Diabetes Grandfather CAD (coronary artery disease) Mother Stroke Cancer Denies family history of Clotting disorder Dementia Chronic kidney disease (CKD) Suicide Anesthesia complication Bleeding disorder Social History Smoking and tobacco status: current every day smoker cigarettes Packs smoked per day: 1 Alcohol intake: former Substance/Drug Use: never Lives independently: Yes Household members: spouse Housing: House Marital status: Physical Exam Const: COMMON NORMALS: no acute distress, patient oriented x3, no limitations and alert ORIENTATION/CONSCIOUSNESS: Yes awake, Yes oriented to person, Yes oriented to place and Yes oriented to time Extremity: COMMON NORMALS: normal to inspection GENERAL: Yes normal exam except as noted Neuro: ANABELLA COMA SCALE: document GCS findings Anabella coma scale eye opening: Spontaneous Anabella coma scale verbal response: Orientated Anabella coma scale motor response: Obey commands Anabella coma scale total score: 15 COMMON NORMALS: patient oriented x3, moves all extremities, no focal motor deficits and no sensory deficits noted SENSORIUM/ORIENTATION: Yes alert, Yes oriented to person, Yes oriented to place and Yes oriented to time [facility] - General Adult Medical Decision Making Patient here for his last/final rabies vaccination following a bat bite. Vaccine was administered. Rabies PEP series completed. He is stable for discharge. Discharge Plan Discharge Patient Disposition: Home Clinical Impression: Encounter for repeat administration of rabies vaccination Condition: Stable Prescriptions: No Action multivitamin Tablet 1 tab PO DAILY omega 2-kdi-hbo-fish oil [Fish Oil] 1,000 mg (120 mg-180 mg) capsule 1 cap PO DAILY sucralfate [Carafate] 1 gram tablet 1 g PO TID PRN (Reason: reflux) Qty: 90 2RF tretinoin 0.1 % cream 1 applic topical DAILY Qty: 45 4RF Rx Instructions: apply to clean, dry face nightly famotidine 20 mg tablet 20 mg PO BID Qty: 60 5RF fluoxetine 20 mg capsule 20 mg PO DAILY Qty: 60 5RF lisinopril 10 mg tablet 10 mg PO DAILY Qty: 30 5RF hydroxyzine pamoate 25 mg capsule 25 mg PO TID PRN (Reason: itching) Qty: 90 0RF atorvastatin 40 mg Tablet 20 mg PO BEDTIME Qty: 60 0RF aspirin 81 mg Tablet,Delayed Release (Dr/Ec) 81 mg PO DAILY Qty: 60 0RF Hold Instructions: Resume on 12/16/21. Discharge Orders: Discharge ED (Routine); Ordered 09/05/22 Ordered By: Georgina Clarke Referrals: Lulú Cuba FNP-C [Primary Care Provider] - Coding Level of Care Code ED Chemical Blender for Myesha Mcneal
[2022-09-05 12:07] VITALS: BP 142/87; PULSE 72; RESP 16; TEMP 36.7; O2SAT 97; BMI 41.5
[2022-09-05] MEDS: rabies vaccine 2.5 unit SDV IM (12:10)
== END 2022-09-05 12:17 | disposition home or self-care (01) ==
PROVIDERS: Emergency Provider Physician Assistant; PCP Nurse Practitioner Family
DX: Z29.14 Encounter for prophylactic rabies immune globulin (principal); Z20.3 Contact with and (suspected) exposure to rabies; Z23 Encounter for immunization; W55.81XA Bitten by other mammals, initial encounter; Z79.82 Long term (current) use of aspirin; E78.5 Hyperlipidemia, unspecified; I10 Essential (primary) hypertension; F17.210 Nicotine dependence, cigarettes, uncomplicated
CPT/HCPCS: 90471; 90675; 99283

== ENCOUNTER 2022-09-10 10:54 | Emergency (ER) | payer BC, MEDICAID, SELFPAY ==
[2022-09-10 11:32] VITALS: BP 139/91; PULSE 73; RESP 17; TEMP 36.6; O2SAT 98; BMI 41.5
--- NOTE | 2022-09-10 11:49 | XR_ITS ---
WS: [id number] XR knee LT 3V* [id number] REASON FOR EXAM: Left knee pain and swelling FINDINGS: Probable joint effusion. The joint spaces of the left knee are intact and well preserved. Mild subchondral sclerosis in the me dial and lateral joint spaces. There is subtle/equivocal deformity of the posterior lateral subarticular lateral tibial plateau. XR/XR knee LT 3V* [id number] IMPRESSION: Equivocal for acute fracture. If there is a history of trauma and the pain loca lizes laterally recommend follow-up examination in 7-10 days.
--- NOTE | 2022-09-10 14:16 | W.ED.EXTPRO ---
HPI - Extremity Problem General: Chief complaint: Extremity Problem,Nontraumatic Stated complaint: knee pain Time Seen by Provider: 09/10/22 11:49 History of Present Illness: Patient is a 42-year-old male who comes to the ED with left knee pain. Pain has been going on now for the past 3 weeks. Patient says he was lifting some equipment at home 3 weeks ago and right after that he has been having left knee pain and swelling. Denies any known injury or trauma to cause left knee pain. He rates his pain about a 1 out of 10 while at rest and a 5 out of 6 when he is up and ambulating on left leg. He describes the pain as an aching type pain. He keeps having on and off swelling around his left knee. He says his left knee feels unstable when he is ambulating on it and it will give out. He also reports decreased flexion of knee as well. Associated symptoms: Deny chest pain, fever(s) or rash Review of Systems Const: Denies: fever(s), chills or fatigue Eyes: Denies: change in vision or eye discomfort ENMT: Denies: throat pain, odynophagia, nasal discharge or nasal congestion Card: Denies: chest pain, palpitations, edema, swelling of feet/ankles, dyspnea on exertion or orthopnea Resp: Denies: dyspnea, productive cough or non-productive cough GI: Denies: abdominal pain, nausea, vomiting, diarrhea, constipation or hematochezia : Denies: flank pain, difficulty urinating, dysuria or hematuria Musc: Reports: extremity pain (Left knee pain); Denies: neck pain, back pain or extremity swelling Skin/Breast: Denies: rash or new lesions Neuro: Denies: headache(s), numbness in extremities or weakness in extremities PFS ED PFSH: Medical History Atypical chest pain Chest pain Dyslipidemia Elevated blood pressure reading Essential hypertension No pertinent past medical history No pertinent past medical history Surgical History No significant past surgical history Family History Family/Other CAD (coronary artery disease) uncle at 48, CHF Cancer Lung disease Stroke Father CAD (coronary artery disease) Diabetes Grandfather CAD (coronary artery disease) Mother Stroke Cancer Denies family history of Clotting disorder Dementia Chronic kidney disease (CKD) Suicide Anesthesia complication Bleeding disorder Social History Smoking and tobacco status: current every day smoker cigarettes Packs smoked per day: 1 Alcohol intake: former Substance/Drug Use: never Lives independently: Yes Household members: spouse Housing: House Marital status: Physical Exam Const: COMMON NORMALS: no acute distress, patient oriented x3 and alert HENMT: COMMON NORMALS: normocephalic HEAD & SCALP: normocephalic MOUTH: Normal oral and palatal mucosa present THROAT: posterior oropharynx normal and uvula midline Neck/C-Spine: COMMON NORMALS: supple GENERAL: Yes normal visual inspection Resp: COMMON NORMALS: normal respiratory effort, No retractions, No use of accessory muscles and clear to auscultation bilaterally AUSCULTATION: clear to auscultation bilaterally Cardio: COMMON NORMALS: regular rate, regular rhythm, S1 normal heart sound present, S2 normal heart sound present, No gallops present (Cardio), No clicks present (Cardio), No murmurs present (Cardio) and Peripheral pulses 2+ throughout RATE: regular rate RHYTHM: regular rhythm HEART SOUNDS: S1 normal heart sound present and S2 normal heart sound present PERIPHERAL PULSES: Peripheral pulses 2+ throughout GI: COMMON NORMALS: Normal to inspection, nondistended, normoactive bowel sounds present, Soft to palpation, non-tender and no masses PALPATION: Yes Soft to palpation : COMMON NORMALS: Yes no CVA tenderness BLADDER/KIDNEY EXAM: Yes no CVA tenderness Back/Pelvis: COMMON NORMALS: no CVA tenderness Extremity: COMMON NORMALS: normal to inspection NARRATIVE EXTREMITY EXAM: Left knee?no visible deformity or ecchymosis noted. Swelling seen. Limited range of motion open (flexion) due to pain. Neurovascular intact distally. Neuro: COMMON NORMALS: patient oriented x3 SENSORIUM/ORIENTATION: Yes alert GAIT: Yes Normal gait present Skin: GENERAL SKIN EXAM: dry skin Course Vital Signs: Vital signs: Vital Signs Temperature 97.8 F 09/10/22 11:32 Pulse Rate 73 09/10/22 11:32 Respiratory Rate 17 09/10/22 11:32 Blood Pressure 139/91 09/10/22 11:32 Pulse Oximetry 98 09/10/22 11:32 Oxygen Delivery Me thod Room Air 09/10/22 11:32 MDM - Extremity (Nontraumatic) Medical Decision Making Patient is a 42-year-old male who comes to the ED with left knee pain. Pain has been going on now for the past 3 weeks. Patient says he was lifting some equipment at home 3 weeks ago and right after that he has been having left knee pain and swelling. Denies any known injury or trauma to cause left knee pain. He rates his pain about a 1 out of 10 while at rest and a 5 out of 6 when he is up and ambulating on left leg. He describes the pain as an aching type pain. He keeps having on and off swelling around his left knee. He says his left knee feels unstable when he is ambulating on it and it will give out. He also reports decreased flexion of knee as well.vital stable. Left knee?no visible deformity or ecchymosis noted. Swelling seen. Limited range of motion (flexion) due to pain. Neurovascular intact distally. X-ray of left knee showed subtle deformity of the posterior lateral subarticular tibial plateau, findings equivocal for acute fracture. Patient was put in a knee immobilizer and discharged home with walker to help with ambulation. I placed order with case management for patient be referred to orthopedic doctor for follow-up on knee fracture. Return ED precautions given. Patient understood and agreed with plan. Lab Data Radiology Impressions Knee X-Ray 09/10/22 11:49 IMPRESSION: Equivocal for acute fracture. If there is a history of trauma and the pain localizes laterally recommend follow-up examination in 7-10 days. Discharge Plan Discharge Patient Disposition: Home Clinical Impression: Tibial plateau fracture, left Qualifiers: Encounter type: initial encounter Fracture type: closed Qualified Code(s): S82.142A - Displaced bicondylar fracture of left tibia, initial encounter for closed fracture Condition: Stable Prescriptions: No Action multivitamin Tablet 1 tab PO DAILY omega 5-vmm-drf-fish oil [Fish Oil] 1,000 mg (120 mg-180 mg) capsule 1 cap PO DAILY sucralfate [Carafate] 1 gram tablet 1 g PO TID PRN (Reason: reflux) Qty: 90 2RF tretinoin 0.1 % cream 1 applic topical DAILY Qty: 45 4RF Rx Instructions: apply to clean, dry face nightly famotidine 20 mg tablet 20 mg PO BID Qty: 60 5RF fluoxetine 20 mg capsule 20 mg PO DAILY Qty: 60 5RF lisinopril 10 mg tablet 10 mg PO DAILY Qty: 30 5RF hydroxyzine pamoate 25 mg capsule 25 mg PO TID PRN (Reason: itching) Qty: 90 0RF atorvastatin 40 mg Tablet 20 mg PO BEDTIME Qty: 60 0RF aspirin 81 mg Tablet,Delayed Release (Dr/Ec) 81 mg PO DAILY Qty: 60 0RF Hold Instructions: Resume on 12/16/21. Discharge Orders: Discharge ED (Routine); Ordered 09/10/22 Ordered By: Abhijeet Bruner Referrals: Lulú Cuba FNP-C [Primary Care Provider] - Discharge Diet: Regular Discharge Activity: Limit activity as instructed and Use walker/crutches as instructed Patient Instructions: Fractures - Knee Activity Restrictions/Additional Instructions: Follow-up with medical provider as directed. Case management should be contacted in the next several days to set up an appointment for orthopedic doctor for follow-up. Wear knee immobilizer and no weightbearing on left leg until cleared by orthopedic doctor. Use crutches for ambulation. Ice and elevate knee to help with symptoms. Take qcxc-nev-malifrb ibuprofen or Tylenol per bottle instructions to help with pain. Return to the ER or your medical provider if condition worsens. Please read and understand discharge instructions. Thank you for choosing [facility] for your healthcare needs today. Please realize this is an emergency room and that we are providing you with a medical screening exam and this may not be complete and all inclusive of all the testing and or work up that you may need to determine your ailment or severity of your illness. It is very important that you follow up as instructed or that you return to the Emergency Department should you have concerns or if your condition changes or worsens in any way. Coding Level of Care Code ED Air Conditioning Mechanic for Myesha Mcneal
--- NOTE | 2022-09-10 14:37 | DCPLANNER ---
Addendum entered by Chante Triana 09/22/22 12:26: Patient had a follow up appointment scheduled with ortho - patient did attend appointment. Original Note: manager membership had message to schedule a follow up appointment for patient with ortho. manager membership sent patients information to the front office staff at ortho. Patients information will be printed and reviewed. Clinic will call patient with appointment information.
== END 2022-09-10 17:18 | disposition home or self-care (01) ==
PROVIDERS: Emergency Provider Physician Assistant; PCP Nurse Practitioner Family
DX: S82.142A Displaced bicondylar fracture of left tibia, initial encounter for closed fracture (principal); Z79.82 Long term (current) use of aspirin; F17.210 Nicotine dependence, cigarettes, uncomplicated; E78.5 Hyperlipidemia, unspecified; I10 Essential (primary) hypertension; X50.0XXA Overexertion from strenuous movement or load, initial encounter
CPT/HCPCS: 29530; 73562; 99283

== ENCOUNTER → 2022-09-21 10:04 | Outpatient (BNVA) | payer BC, MEDICAID, SELFPAY | PROVIDERS: PCP Nurse Practitioner Family; Visit Provider Nurse Practitioner Family | DX: S89.92XD Unspecified injury of left lower leg, subsequent encounter (principal); W22.8XXD Striking against or struck by other objects, subsequent encounter | CPT/HCPCS: 73560; 73565 ==

== ENCOUNTER 2022-09-27 16:54 | Outpatient (CLI) | payer BC, MEDICAID, SELFPAY ==
--- NOTE | 2022-09-27 17:00 | CT_ITS ---
WS: [id number] NONCONTRAST CT LEFT KNEE TECHNIQUE: Noncontrast CT LEFT knee with coronal and sagittal reformatted images. CLINICAL INFORMATION: possible Tibia Plateau Fracture COMPARISON: September 21, 2022 DLP: 315.[address] scans at [facility] use at least one of these dose optimization techniques: automated e xposure control; mA and/or kV adjustment per patient size (includes targeted exams where dose is matc hed to clinical indication); or iterative reconstruction. FINDINGS: Normal anatomic alignment. Tiny joint effusion. Hypertrophic patella. Mild tricompartmental joint spa ce narrowing. Mild hypertrophic changes along the joint line. Fibular head is normal in appearance. S ubchondral sclerosis involving the medial and lateral tibial plateau. No visualized tibial plateau fr actures. CT/CT knee LT wo con* [id number] IMPRESSION: 1. No acute tibial plateau fractures corresponding to the plain film radiograp hs. 2. Mild tricompartmental osteoarthritis. 3. Small suprapatellar effusion. 4. Slightly hypertrophic patella. 5. If persistent concern or concern for internal derangement MRI could be obta ined for further evaluation.
== END 2022-09-27 16:55 | disposition home or self-care (01) ==
LOC: RAD 16:54
PROVIDERS: PCP Nurse Practitioner Family; Visit Provider Nurse Practitioner Family
DX: S89.92XA Unspecified injury of left lower leg, initial encounter (principal); X58.XXXA Exposure to other specified factors, initial encounter; M17.12 Unilateral primary osteoarthritis, left knee; M25.412 Effusion, left shoulder
CPT/HCPCS: 73700

== ENCOUNTER → 2022-10-15 14:55 | Outpatient (BNVA) | payer BC, MEDICAID, SELFPAY | PROVIDERS: PCP Nurse Practitioner Family; Visit Provider Nurse Practitioner Family | DX: R05.9 Cough, unspecified (principal) | CPT/HCPCS: 87426 ==

== ENCOUNTER 2023-03-24 09:37 | Observation (INO) | payer OTHER, SELFPAY ==
[2023-03-24] VITALS (7 sets, daily range): BP systolic 142–152; BP diastolic 70–100; PULSE 79–91; RESP 18–22; TEMP 36.4–36.7; O2SAT 91–95; BMI 41.5
--- NOTE | 2023-03-24 11:11 | XR_ITS ---
WS: [id number] Exam: XR chest 1V portable [id number] Date/Time of Exam: 03/24/2023 11:29 AM Reason For Exam: chest pain Comparison 09/29/2021. The lungs are fully expanded. No consolidated infiltrates are seen. Chronic interstitial changes and scattered granulomas. Heart size is within normal limits. The mediastinum is normal in contour. Decre ased lung volumes secondary to limited inspiration. IMPRESSION: 1. No acute cardiopulmonary finding. No change.
--- NOTE | 2023-03-24 11:12 | W.ED.GENADLT ---
HPI - General Adult General: Chief complaint: General Medical Stated complaint: pain under ribs, center back pain Time Seen by Provider: 03/24/23 09:48 Source: patient Mode of arrival: ambulatory Limitations: no limitations History of Present Illness: This patient comes in because of progressive and worsening chest pain symptoms. He states his symptoms began on Tuesday evening or chronic indolent in nature and are primarily on his left lower chest. He states they hurt when he took a deep breath. He had they have progressed and now involve both sides of his lower chest. He states it hurts to take a deep breath twist turn or any kind of physical activity. He again denies any known injury. 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 He denies any fevers that he knows of but has had a cough. He does not have a history of cardiovascular disease and essentially is healthy but he does smoke tobacco. He states he saw his chiropractor yesterday and got some temporary relief of his symptoms after treatment there. No history of thromboembolic events. Associated symptoms: Reports chest pain; Deny dyspnea, headache(s), nausea, rash, syncope or vomiting Review of Systems Const: Denies: fever(s) or chills Eyes: Denies: change in vision ENMT: Denies: throat pain, odynophagia, nasal discharge, nasal congestion or nasal obstruction Card: Reports: chest pain; Denies: edema, syncope or pre-syncope Resp: Reports: non-productive cough; Denies: dyspnea, wheezing or stridor GI: Denies: abdominal pain, nausea, vomiting or diarrhea : Denies: flank pain, difficulty urinating, dysuria or urinary frequency Musc: Denies: neck pain, back pain, extremity pain or extremity swelling Skin/Breast: Denies: rash Neuro: Denies: headache(s), numbness in extremities or weakness in extremities [place]/Lymph: Denies: easy bruising or easy bleeding PFSH ED PFSH: Medical History Essential hypertension Dyslipidemia Elevated blood pressure reading Atypical chest pain No pertinent past medical history Chest pain No pertinent past medical history Surgical History No significant past surgical history Family History Family/Other CAD (coronary artery disease) uncle at 48, CHF Cancer Lung disease Stroke Father CAD (coronary artery disease) Diabetes Grandfather CAD (coronary artery disease) Mother Stroke Cancer Denies family history of Clotting disorder Dementia Chronic kidney disease (CKD) Suicide Anesthesia complication Bleeding disorder Social History Smoking and tobacco/nicotine status: current every day tobacco/nicotine user cigarettes Packs smoked per day: 1 Alcohol intake: former Substance/Drug Use: never Lives independently: Yes Household members: spouse Housing: House Marital status: Physical Exam Narrative: EXAM NARRATIVE: He is in mild to moderate distress with deep breaths. He is alert and oriented and able to converse in complete sentences with some dyspnea with prolonged conversation Const: COMMON NORMALS: patient oriented x3 and alert GENERAL APPEARANCE: cooperative NUTRITIONAL APPEARANCE: overweight HENMT: COMMON NORMALS: normocephalic, Normal nasal mucous membranes and turbinates present and moist oral mucous membranes HEAD & SCALP: normocephalic NOSE: Normal nasal mucous membranes and turbinates present Eye: COMMON NORMALS: Equal, round and reactive pupils present, EOMs intact bilaterally and conjunctivae normal CONJUNCTIVA: Yes conjunctivae normal PUPIL: Yes Equal, round and reactive pupils present Neck/C-Spine: COMMON NORMALS: full ROM, no lymphadenopathy and no meningeal signs Chest: OTHER: He is tender bilaterally with AP and lateral compression of his lower chest. No skin rashes are noted. Resp: AUSCULTATION: crackles OTHER: He is splinting and taking shallow breaths. Cardio: COMMON NORMALS: regular rate, regular rhythm, No murmurs present (Cardio) and Peripheral pulses 2+ throughout RATE: regular rate RHYTHM: regular rhythm PERIPHERAL PULSES: Peripheral pulses 2+ throughout GI: COMMON NORMALS: Normal to inspection, nondistended, normoactive bowel sounds present, Soft to palpation and non-tender INSPECTION: Yes central obesity PALPATION: Yes Soft to palpation Back/Pelvis: COMMON NORMALS: thoracic and lumbar spine normal to inspection, thoraco-lumbar ROM normal and straight leg raise negative bilaterally OTHER: He has tenderness in the para spinal regions particularly in the lower areas extending around the rib margins bilaterally. No skin rashes. No midline tenderness or step-off. Extremity: COMMON NORMALS: normal to inspection, full ROM, capillary refill normal and no calf tenderness Neuro: COMMON NORMALS: patient oriented x3, moves all extremities, no focal motor deficits and no sensory deficits noted SENSORIUM/ORIENTATION: Yes alert MENINGEAL SIGNS: Yes no meningeal signs Psych: COMMON NORMALS: mental status grossly normal Skin: COMMON NORMALS: no rashes or lesions noted, no wounds and turgor normal GENERAL SKIN EXAM: no rashes or lesions noted and turgor normal Course Reevaluation(s): Reevaluation #1: Discussed with radiologist has a bilateral PE with a relatively large clot burden with no evidence of right heart strain. Discussed with patient given his clot burden and the appearance of some of the clots I think is reasonable that we admit him with IV heparin I do not think he is a good candidate for discharge on oral DOAC's Reviewed family history the patient there is been no history of unprovoked blood clots in the family. Time: 13:03 Consultations: Consultation #1: Discussed with Dr. León who agrees to place him in observation Time: 13:10 Vital Signs: Vital signs: Vital Signs Temperature 97.5 F L 03/24/23 09:40 Pulse Rate 84 03/24/23 10:07 Respiratory Rate 22 H 03/24/23 11:21 Blood Pressure 143/100 03/24/23 10:07 Pulse Oximetry 95 03/24/23 10:07 Oxygen Delivery Me thod Room Air 03/24/23 10:07 [facility] - General Adult Medical Decision Making This patient presented himself to the emergency department with increasing bilateral pleuritic type chest pain has been present over the past 4 to 5 days. He is denies any injury, known fevers but has had a dry nonproductive cough. He denies any chest pain. He denies any history of thromboembolic events. He is normally in reasonably good health other than hypertension. He does not denies any known exposure to infectious disease. No history of cardiovascular or cardiopulmonary disease. Clinical examination reveals him to be quite uncomfortable and labored and with deep respirations. No evidence of other significant clinical findings on his exam to include jugular venous distention, pedal edema, calf tenderness etc. Workup ensued which included a D-dimer which is markedly elevated. Subsequent CTPA revealed bilateral pulmonary emboli of significant burden. Although the patient is not significantly hypoxic tachycardic and does not have any evidence of right heart strain because of his clot burden it is felt that he would best be served by IV heparin and observation. Lab Data I reviewed the patient's lab results. 03/24/23 10:00 03/24/23 10:00 Laboratory Results WBC 11.25 10^3/uL (3.29-11.43) 03/24/23 10:00 RBC 4.49 10^6/uL (3.85-5.65) 03/24/23 10:00 Hgb 13.70 g/dL (11.27-16.99) 03/24/23 10:00 Hct 40.5 % (37-53) 03/24/23 10:00 MCV 90.2 fl (82-101) 03/24/23 10:00 MCH 30.5 pg (27-33) 03/24/23 10:00 MCHC 33.8 g/dL (30-55) 03/24/23 10:00 RDW 12.6 % (12.1-15.1) 03/24/23 10:00 Plt Count 271 10^3/cmm (157-399) 03/24/23 10:00 MPV 10.1 fL (7.4-10.4) 03/24/23 10:00 Neut % (Auto) 82.1 % 03/24/23 10:00 Lymph % (Auto) 9.1 % 03/24/23 10:00 [place] % (Auto) 7.7 % 03/24/23 10:00 Eos % (Auto) 0.4 % 03/24/23 10:00 Baso % (Auto) 0.3 % 03/24/23 10:00 Neut # (Auto) 9.24 10^3/uL (1.8-7.7) H 03/24/23 10:00 Lymph # (Auto) 1.0 10^3/uL (0.8-4.8) 03/24/23 10:00 [place] # (Auto) 0.9 10^3/uL (0.2-0.9) 03/24/23 10:00 Eos # (Auto) 0.1 10^3/uL (0.0-0.8) 03/24/23 10:00 Baso # (Auto) 0.0 10^3/uL (0.0-0.1) 03/24/23 10:00 Nucleated RBC % (auto) 0 % 03/24/23 10:00 Nucleated RBCs # 0.0 /100WBC 03/24/23 10:00 D-Dimer 5.95 ug/mLFEU (0-0.59) H 03/24/23 10:00 Sodium 139 mmol/L (136-145) 03/24/23 10:00 Potassium 3.6 mmol/L (3.5-5.1) 03/24/23 10:00 Chloride 102 mmol/L (98-107) 03/24/23 10:00 Carbon Dioxide 27 mmol/L (22-29) 03/24/23 10:00 Anion Gap 13.6 (5-19) 03/24/23 10:00 BUN 11 mg/dL (6-20) 03/24/23 10:00 Creatinine 0.7 mg/dL (0.7-1.2) 03/24/23 10:00 GFR Calculation 124.3 mL/min (90-130) 03/24/23 10:00 Glucose 99 mg/dL (65-115) 03/24/23 10:00 Calculated Osmolality 287 mOsm/kg (285-295) 03/24/23 10:00 Calcium 9.2 mg/dL (8.5-10.5) 03/24/23 10:00 Total Bilirubin 0.8 mg/dL (0.15-1.2) 03/24/23 10:00 AST 12 U/L (0-40) 03/24/23 10:00 ALT 13 U/L (0-41) 03/24/23 10:00 Alkaline Phosphatase 103 U/L (40-130) 03/24/23 10:00 Troponin T Baseline < 6 ng/L (0-15) 03/24/23 10:00 Troponin T 120 Minute 6.59 ng/L (0-15) 03/24/23 12:05 Delta Troponin T 0.61990 ABS# (0-10) 03/24/23 12:05 Total Protein 6.7 g/dL (6.6-8.7) 03/24/23 10:00 Albumin 3.5 g/dL (3.5-5.2) 03/24/23 10:00 Globulin 3.2 g/dL (1.3-4.6) 03/24/23 10:00 All radiology interpretation(s) finalized by discharge Discharge Plan Discharge Patient Disposition: Placed in Observation Clinical Impression: Bilateral pulmonary embolism Condition: Stable Prescriptions: No Action multivitamin Tablet 1 tab PO DAILY fluoxetine 20 mg capsule 20 mg PO DAILY Qty: 60 5RF hydroxyzine pamoate 25 mg capsule 25 mg PO TID PRN (Reason: itching) Qty: 90 0RF (DME) Crutches See Rx Instructions .Route .MEDSUPPLY Qty: 1 0RF Rx Instructions: As directed (DME) HINGE KNEE BRACE See Rx Instructions .Route .MEDSUPPLY Qty: 1 0RF Rx Instructions: As directed aspirin 81 mg Tablet,Delayed Release (Dr/Ec) 81 mg PO DAILY Qty: 60 0RF Hold Instructions: Resume on 12/16/21. acetaminophen 500 mg Tablet 1,000 mg PO Q6H PRN (Reason: Pain) ibuprofen 200 mg Tablet 600 mg PO Q6H PRN (Reason: Pain) Referrals: Lulú Cuba FNP-C [Primary Care Provider] - Coding Level of Care Code ED Director Corporate Security for Myesha Mcneal
[2023-03-24 11:17] LABS: Basophils % 0.3 %; Eosinophils # 0.1 10^3/uL (0.0-0.8); Eosinophils % 0.4 %; Hematocrit 40.5 % (37-53); Lymphocytes % 9.1 %; Mean Corpuscular HGB Conc 33.8 g/dL (30-55); Mean Corpuscular Hemoglobin 30.5 pg (27-33); Mean Corpuscular Volume 90.2 fl (82-101); Mean Platelet Volume 10.1 fL (7.4-10.4); Monocytes # 0.9 10^3/uL (0.2-0.9); Monocytes % 7.7 %; Neutrophils # 9.24 10^3/uL (1.8-7.7); Neutrophils % 82.1 %; Nucleated Red Blood Cells % 0 %; Platelet Count 271 10^3/cmm (157-399); Red Blood Count 4.49 10^6/uL (3.85-5.65); Red Cell Distribution Width 12.6 % (12.1-15.1); White Blood Count 11.25 10^3/uL (3.29-11.43)
--- NOTE | 2023-03-24 11:20 | ECG_ITS ---
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 Measurements Intervals [place] Rate: 80 P: 32 NE: 125 QRS: 1 QRSD: 84 T: 26 QT: 364 QTc: 422 Interpretive Statements SINUS RHYTHM WITH FREQUENT ECTOPIC PREMATURE COMPLEXES POSSIBLE RIGHT VENTRICULAR CONDUCTION DELAY [RSR (QR) IN V1/V2] NONSPECIFIC T-WAVE ABNORMALITY Compared to ECG 09/30/2021 13:18:45 T-wave abnormality now present Electronically Signed On 03-24-2023 17:49:07 SHUTTLE TRUCK DRIVER by Victorino Proctor M.D. [id number]
[2023-03-24] MEDS: morphine 4 mg/mL SDV 1 mL IVP (11:21)
[2023-03-24 11:28] LABS: Alanine Aminotransferase 13 U/L (0-41); Albumin Level 3.5 g/dL (3.5-5.2); Alkaline Phosphatase 103 U/L (40-130); Anion Gap 13.6 (5-19); Aspartate Amino Transferase 12 U/L (0-40); Blood Urea Nitrogen 11 mg/dL (6-20); Calcium 9.2 mg/dL (8.5-10.5); Carbon Dioxide 27 mmol/L (22-29); Chloride 102 mmol/L (98-107); Globulin 3.2 g/dL (1.3-4.6); Glomerular Filtration Rate 124.3 mL/min (90-130); Glucose 99 mg/dL (65-115); Osmolality Calculated 287 mOsm/kg (285-295); Potassium 3.6 mmol/L (3.5-5.1); Sodium 139 mmol/L (136-145); Total Bilirubin 0.8 mg/dL (0.15-1.2); Total Protein 6.7 g/dL (6.6-8.7)
[2023-03-24 11:29] LABS: Troponin(5th) Baseline < 6 ng/L (0-15)
[2023-03-24 11:31] LABS: D Dimer 5.95 ug/mLFEU (0-0.59)
--- NOTE | 2023-03-24 12:25 | CT_ITS ---
WS: [id number] CT CHEST ANGIOGRAPHY WITH REFORMATS HISTORY: pain and elevated dimer TECHNIQUE: Contiguous axial images are obtained through the chest during arterial injection of intrav enous contrast. Images are reconstructed to evaluate the pulmonary arteries. MIP imaging also reviewe d. All CT scans at [facility] use at least one of these dose optimization techniques: automat ed exposure control; mA and/or kV adjustment per patient size (includes targeted exams where dose is matched to clinical indication); or iterative reconstruction. CONTRAST: Omnipaque 350; 100 mL IV. DLP: 494.10 mGy.cm COMPARISON: None available. Adequate opacification of the pulmonary arteries. Luminal filling defects are noted beginning in the proximal lobar branches bilaterally extending into the upper and lower lung bueno. Greater distribut ion of PE's on the RIGHT. Pulmonary artery is slightly enlarged. There is mild atherosclerosis aorta. Mild cardiomegaly with significant RIGHT heart strain. No pericardial effusion. Lung volumes are decreased due to poor inspiration. Bilateral lower lobe opacifications. Atelectasis versus developing pulmonary infarcts. Very tiny LEFT pleural effusion. No pneumothorax. Mediastinal a nd hilar and anterior mediastinal lymphadenopathy. Largest lymph node at the LEFT hilum measures 2.2 cm. No osseous destruction. IMPRESSION: 1. Moderate bilateral pulmonary embolic burden beginning at the level of the lobar branches. 2. Bilateral lower lobe opacifications. Atelectasis versus developing pulmonary infarct from PE. 3. Very small LEFT pleural effusion. 4. No RIGHT heart strain. Notified Laith Camejo DO at 03/24/2023 1:00 PM.
[2023-03-24 12:54] LABS: Troponin 5 2HR 6.59 ng/L (0-15)
--- NOTE | 2023-03-24 13:11 | ECG_ITS ---
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 Measurements Intervals [place] Rate: 82 P: 32 [place]: 127 QRS: 0 QRSD: 98 T: 36 QT: 378 QTc: 443 Interpretive Statements SINUS RHYTHM WITH FREQUENT ECTOPIC PREMATURE COMPLEXES INCOMPLETE RIGHT BUNDLE BRANCH BLOCK [90+ ms QRS DURATION, TERMINAL R IN V1/V2, 40+ ms S IN I/aVL/V4/V5/V6] NONSPECIFIC T-WAVE ABNORMALITY Compared to ECG 03/24/2023 11:20:32 Incomplete right bundle-branch block now present T-wave abnormality still present Electronically Signed On 03-24-2023 17:51:09 BABY SITTER by Victorino Proctor M.D. [id number]
--- NOTE | 2023-03-24 13:34 | P.HP_ITS ---
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 He show experiencing symptoms on Tuesday after his work over the weekend. In the ER he has been diagnosed with bilateral PE I will start him on therapeutic Lovenox, will give him anti-inflammatory medications Review of Systems 2 Const: Reports: fatigue; Denies: fever(s) Eyes: Denies: change in vision ENMT: Denies: throat pain Card: Reports: chest pain Resp: Denies: dyspnea GI: Denies: abdominal pain : Denies: flank pain Musc: Denies: neck pain Skin/Breast: Denies: rash Neuro: Denies: headache(s) Psych: Reports: anxiety Endo: Denies: polyuria Medications/Allergies Home Medications Medication Instructions Recorded Confirmed Last Taken Type aspirin 81 mg tablet,delayed 81 mg PO DAILY #60 tabs 10/01/21 03/24/23 03/23/23 Rx release multivitamin 1 tab PO DAILY 11/25/21 03/24/23 03/23/23 History fluoxetine 20 mg capsule 20 mg PO DAILY #60 caps 07/05/22 03/24/23 03/23/23 Rx Crutches #1 ea 09/21/22 03/24/23 Unknown Rx hydroxyzine pamoate 25 mg capsule 25 mg PO TID PRN itching #90 caps 09/27/22 03/24/23 03/23/23 Rx HINGE KNEE BRACE #1 ea 10/04/22 03/24/23 Unknown Rx acetaminophen 500 mg tablet 1,000 mg PO Q6H PRN Pain 03/24/23 03/24/23 03/23/23 History ibuprofen 200 mg tablet 600 mg PO Q6H PRN Pain 03/24/23 03/24/23 03/23/23 History Allergies Allergy/AdvReac Type Severity Reaction Status Date / Time No Known Allergies Allergy Verified 12/20/22 08:28 PFSH Acute 2 PFSH: Medical History Essential hypertension Dyslipidemia Elevated blood pressure reading Atypical chest pain No pertinent past medical history Chest pain No pertinent past medical history Surgical History No significant past surgical history Family History Family/Other CAD (coronary artery disease) uncle at 48, CHF Cancer Lung disease Stroke Father CAD (coronary artery disease) Diabetes Grandfather CAD (coronary artery disease) Mother Stroke Cancer Denies family history of Clotting disorder Dementia Chronic kidney disease (CKD) Suicide Anesthesia complication Bleeding disorder Social History Smoking and tobacco/nicotine status: current every day tobacco/nicotine user cigarettes Packs smoked per day: 1 Alcohol intake: former Substance/Drug Use: never Lives independently: Yes Household members: spouse Housing: House Marital status: Vitals/I&O/Wt Last Vital Signs Temp 97.5 F L 03/24/23 09:40 Pulse 84 03/24/23 10:07 Resp 22 H 03/24/23 11:21 BP 143/100 03/24/23 10:07 Pulse Ox 95 03/24/23 10:07 O2 Del Method Room Air 03/24/23 10:07 Weight last 48 hrs Weight 163.293 kg Physical Exam 2 Narrative: Awake and alert GCS 15 Pleuritic pain Hemodynamic stable Saturating well on room air Lower extremity edema noted High BMI Morbidly obese Tachypneic tachycardic S1, S2 Data 03/24/23 10:00 03/24/23 10:00 A&P Assessment and plan (1) Bilateral pulmonary embolism: (2) Gastritis: (3) Pleuritic pain: (4) Essential hypertension: Plan Provoked pulm embolism Surgery lifestyle Start therapeutic Lovenox and will switch to Eliquis at home discharge Give opioids and anti-inflammatory Full code Request echo Check venous Doppler Request BNP Patient is a smoker No previous history of cancer Attestations 2 Medical Necessity Statement*: Less than 2 midnights anticipated for management of PE Diagnoses Bilateral pulmonary embolism I26.99 Gastritis K29.70 Pleuritic pain R07.81 Essential hypertension I10
--- NOTE | 2023-03-24 14:04 | USCV_ITS ---
Yaniv Peñaloza Age: 42 Gender: M : 1980 Exam Date: 03/24/2023 14:58 Ordering Phys: Roxanna Torrez MD Technologist: AMBROCIO [place] [facility] [place]: PE BP: 151 / 76 HR: 78 Rhythm: Sinus Technical Quality: Suboptimal MEASUREMENTS (Male / Female) Normal Values 2D ECHO LVOT Diameter 2.0 cm LV Ejection Fraction MOD 2C 63.3 % LV Ejection Fraction 2C AL 63.8 % LA Diameter 3.1 cm LA Width 3.0 cm LA Height 5.3 cm RA Width 3.8 cm RA Height 4.8 cm Aorta at Sinotubular Diameter 2.4 cm IVC Diameter 1.8 cm M-MODE Aortic Annulus Diameter 3.0 cm LA Ao Ratio MM 1.1 MV E Point Septal Separation 0.8 cm DOPPLER AV Peak Velocity 191.0 cm/s LVOT Peak Velocity 117.0 cm/s AV Area Cont Eq vti 1.8 cm squared AV Area Cont Eq pk 2.0 cm squared MV Peak Velocity 105.0 cm/s MV Area PHT 5.0 cm squared Mitral E to A Ratio 1.3 MV E' Velocity 46.5 cm/s Mitral E to MV E' Ratio 5.9 Mitral E to LV E' Lateral Ratio 5.2 Mitral E to LV E' Septal Ratio 6.8 TR Peak Velocity 28.0 cm/s TR Peak Gradient 0.3 mmHg Right Atrial Pressure 3.0 mmHg Pulmonary Artery Systolic Pressu 3.3 mmHg PV Peak Velocity 137.0 cm/s RV Acceleration Time 0.1 s RV Ejection Time 0.3 s RV AcT/ET 0.4 FINDINGS Left Ventricle Technically limited quality echocardiogram because of poor ultrasonic windows. LV systolic function is normal with EF of 60 to 65%. No regional wall motion abnormalities are seen. Right Ventricle Not well visualized Right Atrium Normal in size Left Atrium Normal in size Mitral Valve Grossly normal. Mild mitral regurgitation. Aortic Valve Grossly normal. Mild aortic stenosis with aortic valve area of 1.85 cm squared with mean gradient of 10 mmHg. Tricuspid Valve Mild tricuspid regurgitation. Insufficient TR jet to evaluate RVSP. Pulmonic Valve Not well-visualized. Pericardium Normal Aorta Normal in size IVC Not well visualized CONCLUSIONS Technically limited quality echocardiogram because of poor ultrasonic windows. LV systolic function is normal with EF of 60 to 65%. Mild mitral regurgitation Mild tricuspid regurgitation Mild aortic stenosis Compared to prior echocardiogram from 2021, patient now has mild aortic stenosis. Victorino Proctor MD (Electronically Signed) Final Date: 24 March 2023 18:02 S
[2023-03-24 14:14] LABS: NT Pro B Type Natriuretic Pept < 36 pg/mL (0-125)
--- NOTE | 2023-03-24 14:15 | USCV_ITS ---
Yaniv Peñaloza Age: 42 Gender: M : 1980 Exam Date: 03/24/2023 14:44 Ordering Phys: Roxanna Torrez MD Technologist: AMBROCIO Exam Location: [facility] – [place] Indication: PE HISTORY: Pulmonary embolism. PROCEDURES: Venous duplex imaging was performed in bilateral lower extremities. The following venous structures were evaluated: common femoral vein, profunda vein, proximal portion of the greater saphenous vein, superficial femoral vein, and the popliteal vein. In addition, the posterior tibial and peroneal trunk were evaluated. Serial compression, augmentation maneuvers, and spectral Doppler flow evaluation were performed. FINDINGS: No evidence of DVT seen in any vessel visualized at this time. Examination was technically limited due to body habitus. CONCLUSIONS No DVT bilateral lower extremities. Technically difficult exam. Dr. Iesha Murillo DO (Electronically Signed) Final Date: 24 March 2023 15:45 S
[2023-03-24] MEDS: HYDROmorphone 1 mg/mL INJ 1 mL 0.2 MG IVP (14:26)
[2023-03-24] MEDS: ketorolac 30 mg/mL INJ 15 MG IVP ×2 (14:27→21:33)
[2023-03-24] MEDS: enoxaparin 150 mg/mL Syringe SUBCUT (14:28)
[2023-03-24 14:46] LABS: Vitamin B12 536 pg/mL (232-1245)
[2023-03-24] MEDS: perflutren protein-a microsphr 0.22 mg/mL SDV 3 mL IV (15:37)
--- NOTE | 2023-03-24 15:58 | PC.NURSE ---
This nurse assumed care of pt at 1550.
[2023-03-24 16:31] LABS: Troponin 5 6HR 7.78 ng/L (0-15)
--- NOTE | 2023-03-24 16:48 | ECG_ITS ---
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 Measurements Intervals [place] Rate: 79 P: 51 [place]: 134 QRS: 6 QRSD: 110 T: 32 QT: 411 QTc: 472 Interpretive Statements SINUS RHYTHM WITH OCCASIONAL ECTOPIC PREMATURE COMPLEXES NONSPECIFIC T-WAVE ABNORMALITY Compared to ECG 03/24/2023 13:13:24 Incomplete right bundle-branch block no longer present T-wave abnormality still present Electronically Signed On 03-24-2023 17:50:25 MEDICAL OFFICE SCHEDULER by Victorino Proctor M.D. [email or web address]/[id number]
[2023-03-24] MEDS: lisinopril 10 mg Tablet PO (17:15)
[2023-03-24] MEDS: morphine IR 15 mg Tablet PO (22:49)
[2023-03-25] VITALS (9 sets, daily range): BP systolic 125–151; BP diastolic 68–85; PULSE 68–85; RESP 16–18; TEMP 36.8–37.1; O2SAT 84–95
[2023-03-25] MEDS: enoxaparin 150 mg/mL Syringe SUBCUT ×2 (02:24→14:26)
[2023-03-25] MEDS: ketorolac 30 mg/mL INJ 15 MG IVP ×3 (02:24→14:25)
[2023-03-25 05:02] LABS: Basophils % 0.3 %; Eosinophils # 0.2 10^3/uL (0.0-0.8); Eosinophils % 1.7 %; Hematocrit 39.1 % (37-53); Lymphocytes # 1.8 10^3/uL (0.8-4.8); Lymphocytes % 19.6 %; Mean Corpuscular Hemoglobin 30.1 pg (27-33); Mean Corpuscular Volume 91.4 fl (82-101); Mean Platelet Volume 9.4 fL (7.4-10.4); Monocytes # 0.8 10^3/uL (0.2-0.9); Monocytes % 9.2 %; Neutrophils # 6.22 10^3/uL (1.8-7.7); Nucleated Red Blood Cells % 0 %; Platelet Count 234 10^3/cmm (157-399); Red Blood Count 4.28 10^6/uL (3.85-5.65); Red Cell Distribution Width 12.6 % (12.1-15.1); White Blood Count 9.02 10^3/uL (3.29-11.43)
[2023-03-25 05:27] LABS: Anion Gap 12.5 (5-19); Blood Urea Nitrogen 16 mg/dL (6-20); Calcium 9.2 mg/dL (8.5-10.5); Carbon Dioxide 28 mmol/L (22-29); Chloride 100 mmol/L (98-107); Glomerular Filtration Rate 106.5 mL/min (90-130); Glucose 95 mg/dL (65-115); Magnesium 2.1 mg/dL (1.7-2.3); Osmolality Calculated 285 mOsm/kg (285-295); Potassium 3.5 mmol/L (3.5-5.1); Sodium 137 mmol/L (136-145)
[2023-03-25] MEDS: lisinopril 10 mg Tablet PO (08:29)
--- NOTE | 2023-03-25 10:08 | P.DS_ITS ---
Discharge Providers Date of Admission: 03/24/23 13:25 Date of Discharge: March 25, 2023 Attending Provider at Admission: Geraldine León MD Attending Provider at Discharge: Geraldine León MD Primary Care Provider: LETTY Amin Diagnoses at Discharge Discharge Diagnosis (1) Bilateral pulmonary embolism: Status: Acute (2) Gastritis: Status: Acute (3) Pleuritic pain: Status: Acute (4) Essential hypertension: Status: Acute Reason for Visit Reason for Visit: pain under ribs, center back pain Hospital Course Hospital Course Patient admitted for rib pain. CT obtained showed 1. Moderate bilateral pulmonary embolic burden beginning at the level of the lobar branches. 2. Bilateral lower lobe opacifications. Atelectasis versus developing pulmonary infarct from PE. 3. Very small LEFT pleural effusion. 4. No RIGHT heart strain. Venous Dopplers negative for DVT. Echo did not show right heart strain Patient placed on therapeutic Lovenox during hospital stay and discharged home on Eliquis PE starter pack. Given hematology consult at discharge. Patient to follow-up with primary care doctor and hematology as an outpatient. Advised him to be on Eliquis for at least 9 months. Home O2 eval done at discharge. Patient qualified for 2 L nasal cannula on exertion. Physical Exam Narrative: Awake and alert GCS 15 Pleuritic pain Hemodynamic stable Saturating well on room air Lower extremity edema noted High BMI Morbidly obese Tachypneic tachycardic S1, S2 Discharge Data Studies Completed and Pending Completed Studies During Hospitalization Category Date Time Status CTA chest [CT angio chest PE protcl [id number]] Stat Cat Scan 03/24/23 12:25 Completed XR chest 1V portable [id number] Stat Exams 03/24/23 11:11 [place] [id number] Routine Ultrasound 03/24/23 14:15 Completed CV. echo wo/w contrast [id number] Routine Ultrasound 03/24/23 14:04 Completed Laboratory Results WBC 9.02 10^3/uL (3.29-11.43) 03/25/23 04:53 RBC 4.28 10^6/uL (3.85-5.65) 03/25/23 04:53 Hgb 12.90 g/dL (11.27-16.99) 03/25/23 04:53 Hct 39.1 % (37-53) 03/25/23 04:53 MCV 91.4 fl (82-101) 03/25/23 04:53 MCH 30.1 pg (27-33) 03/25/23 04:53 MCHC 33.0 g/dL (30-55) 03/25/23 04:53 RDW 12.6 % (12.1-15.1) 03/25/23 04:53 Plt Count 234 10^3/cmm (157-399) 03/25/23 04:53 MPV 9.4 fL (7.4-10.4) 03/25/23 04:53 Neut % (Auto) 69.0 % 03/25/23 04:53 Lymph % (Auto) 19.6 % 03/25/23 04:53 [place] % (Auto) 9.2 % 03/25/23 04:53 Eos % (Auto) 1.7 % 03/25/23 04:53 Baso % (Auto) 0.3 % 03/25/23 04:53 Neut # (Auto) 6.22 10^3/uL (1.8-7.7) 03/25/23 04:53 Lymph # (Auto) 1.8 10^3/uL (0.8-4.8) 03/25/23 04:53 [place] # (Auto) 0.8 10^3/uL (0.2-0.9) 03/25/23 04:53 Eos # (Auto) 0.2 10^3/uL (0.0-0.8) 03/25/23 04:53 Baso # (Auto) 0.0 10^3/uL (0.0-0.1) 03/25/23 04:53 Nucleated RBC % (auto) 0 % 03/25/23 04:53 Nucleated RBCs # 0.0 /100WBC 03/25/23 04:53 D-Dimer 5.95 ug/mLFEU (0-0.59) H 03/24/23 10:00 Sodium 137 mmol/L (136-145) 03/25/23 04:53 Potassium 3.5 mmol/L (3.5-5.1) 03/25/23 04:53 Chloride 100 mmol/L (98-107) 03/25/23 04:53 Carbon Dioxide 28 mmol/L (22-29) 03/25/23 04:53 Anion Gap 12.5 (5-19) 03/25/23 04:53 BUN 16 mg/dL (6-20) 03/25/23 04:53 Creatinine 0.8 mg/dL (0.7-1.2) 03/25/23 04:53 GFR Calculation 106.5 mL/min (90-130) 03/25/23 04:53 Glucose 95 mg/dL (65-115) 03/25/23 04:53 Calculated Osmolality 285 mOsm/kg (285-295) 03/25/23 04:53 Calcium 9.2 mg/dL (8.5-10.5) 03/25/23 04:53 Magnesium 2.1 mg/dL (1.7-2.3) 03/25/23 04:53 Total Bilirubin 0.8 mg/dL (0.15-1.2) 03/24/23 10:00 AST 12 U/L (0-40) 03/24/23 10:00 ALT 13 U/L (0-41) 03/24/23 10:00 Alkaline Phosphatase 103 U/L (40-130) 03/24/23 10:00 Troponin T Baseline < 6 ng/L (0-15) 03/24/23 10:00 Troponin T 120 Minute 6.59 ng/L (0-15) 03/24/23 12:05 Delta Troponin T 0.27309 ABS# (0-10) 03/24/23 12:05 Troponin T Hi Sens 6Hr 7.78 ng/L (0-15) 03/24/23 15:58 Troponin T Hi Sens 6Hr Delta 1.15925 ng/L (0-12) 03/24/23 15:58 NT-Pro-B Natriuret Pep < 36 pg/mL (0-125) 03/24/23 10:00 Total Protein 6.7 g/dL (6.6-8.7) 03/24/23 10:00 Albumin 3.5 g/dL (3.5-5.2) 03/24/23 10:00 Globulin 3.2 g/dL (1.3-4.6) 03/24/23 10:00 Vitamin B12 536 pg/mL (232-1245) 03/24/23 10:00 Vitals Last Vital Signs Temp 98.7 F 03/25/23 08:00 Pulse 69 03/25/23 09:23 Resp 16 03/25/23 09:23 BP 137/68 03/25/23 08:00 Pulse Ox 95 03/25/23 09:23 O2 Del Method Room Air 03/25/23 09:23 O2 Flow Rate 2 03/25/23 04:41 Discharge Plan Discharge Patient Disposition: Home Condition: Stable Prescriptions: New hydrocodone-acetaminophen 5-325 mg tablet 1 tab PO Q8H PRN (Reason: pain) Qty: 6 0RF Eliquis DVT-PE Treat 30D Start 5 mg (74 tabs) tablets,dose pack See Rx Instructions .ROUTE .COMPLEX Qty: 74 0RF Rx Instructions: orally per package directions lisinopril 10 mg Tablet 10 mg PO DAILY Qty: 30 0RF Continued multivitamin Tablet 1 tab PO DAILY fluoxetine 20 mg capsule 20 mg PO DAILY Qty: 60 5RF hydroxyzine pamoate 25 mg capsule 25 mg PO TID PRN (Reason: itching) Qty: 90 0RF (DME) Crutches See Rx Instructions .Route .MEDSUPPLY Qty: 1 0RF Rx Instructions: As directed (DME) HINGE KNEE BRACE See Rx Instructions .Route .MEDSUPPLY Qty: 1 0RF Rx Instructions: As directed aspirin 81 mg Tablet,Delayed Release (Dr/Ec) 81 mg PO DAILY Qty: 60 0RF Hold Instructions: Resume on 12/16/21. acetaminophen 500 mg Tablet 1,000 mg PO Q6H PRN (Reason: Pain) Discontinued ibuprofen 200 mg Tablet 600 mg PO Q6H PRN (Reason: Pain) Discharge Orders: Discharge Order (Routine); Ordered 03/25/23 Ordered By: Geraldine León Other Ambulatory Orders: DME: Oxygen (Order) Location: None Selected Ordered By: Geraldine León [place]: [facility] [place] L[place] FNP-C [Primary Care Provider] - 4-7 days (We have notified your physician's clinic of the need for a follow-up appointment to be scheduled. If you have not heard from them within the next 2 business days, please call them directly. ) Pablito Baca MD [Hospitalist] - 4-7 days (PE We have notified your physician's clinic of the need for a follow-up appointment to be scheduled. If you have not heard from them within the next 2 business days, please call them directly. ) Discharge Diet: Cardiac Discharge Activity: Increase activity as tolerated Patient Instructions: Lisinopril (By mouth), Hydrocodone/Acetaminophen (By mouth) (Vicodin, [place], Lortab), Apixaban (By mouth), Pulmonary Embolism (GEN), Chronic Hypertension (GEN), Opioid Safety Discharge Attestations Time Spent in Discharge Care*: less than 30 min Quality Metrics Clinical Quality Measures [ Venous Thromboembolism { Contraindication to Overlap Therapy: None; Overlap threrpy ordered; VTE Discharge Education: Education about anticoagulant therapy/Care Notes given; Deep Vein Thrombosis/Pulmonary Embolism Present on Admission: Yes;}. No reported AMI, CVA or VTE this stay] Coding Level of Care Code Acute Code for Chg Fwd Diagnoses Bilateral pulmonary embolism I26.99 Gastritis K29.70 Pleuritic pain R07.81 Essential hypertension I10
--- NOTE | 2023-03-25 10:17 | PC.CHAP ---
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 [] Patient/Family/Request visit [] Outpatient visit [] Follow-up visit [] Physician referral [] Code/Alert [x] Routine visit [] Staff referral [] Actively dying [] Patient sleeping [] Family support [] [] Out of room [] Palliative care [] [] Receiving care in room [] Pre-surgical visit [] Trauma [] Long length of stay [] ICU visit [] Other: Relational/Emotional Strength [x] Patient feels connected with others/family/visitors/staff [] Distress [] Loneliness/isolation [] Abandonment Spirituality of Patient [x] Person of Kami [] Attends Gnosticist of their Kami [x] Believes in Prayer [] Reads Bible or Mormonism materials [] There are Spiritual issues to be addressed Sash Repairer Interventions [x] Prayer [x] Active listening [] Non-anxious presence [x] Spiritual/emotional support [] Crisis/trauma care [] Spiritual counseling [] Bereavement support [] Provided bereavement packet [] Provided Bible/devotional materials [] Provided toy/stuffed animal, coloring book to patient or family member [] Provided Communion [] Anointing/Given [] Salvation [x] Completed spiritual assessment [] Other: Impact on Illness or Injury [] Angry [] Fearful [] Anxious [] Often cries [] Exhaustion [] Unable to work [] Unable to attend sikh [] Unable to walk/stand [] Unable to read [] Unable to drive [] Unable to eat/drink [] Unable to sleep [] Unable to be with family [] Patient intubated [] Other: Summary Time spent with patient 5 min
--- NOTE | 2023-03-25 12:25 | PC.SOCIAL ---
O2 eval Pt qualified for 2lnc on his home O2 eval. Pt said he is oay with using HOME. A choice letter filed out & placed in chart. Faxed orders,notes, & eval to HOME.
== END 2023-03-25 15:36 | disposition home or self-care (01) ==
LOC: ER 13:24 → ER IP 13:45 → MEDSURG 14:22
PROVIDERS: Internal Medicine; Admitting Provider Internal Medicine; Emergency Provider Emergency Medicine; PCP Nurse Practitioner Family; Visit Provider Internal Medicine
DX: I26.99 Other pulmonary embolism without acute cor pulmonale (principal); K29.70 Gastritis, unspecified, without bleeding; R07.81 Pleurodynia; I10 Essential (primary) hypertension; J90 Pleural effusion, not elsewhere classified; E78.5 Hyperlipidemia, unspecified; F17.210 Nicotine dependence, cigarettes, uncomplicated
CPT/HCPCS: 36415; 71045; 71275; 80048; 80053; 82607; 83735; 83880; 84484; 85025; 85378; 93005; 93970; 94760; 96372; 96374; 96375; 99285; C8929; G0378; J1170; J1650; J1885; J2270; Q9956

== ENCOUNTER 2023-04-27 09:01 | Oncology outpatient (recurring) (ONCR) | payer OTHER, SELFPAY ==
[2023-04-27 10:28] LABS: Basophils # 0.1 10^3/uL (0.0-0.1); Basophils % 0.5 %; Eosinophils # 0.1 10^3/uL (0.0-0.8); Eosinophils % 0.5 %; Lymphocytes % 20.4 %; Mean Corpuscular HGB Conc 33.7 g/dL (30-55); Mean Corpuscular Hemoglobin 30.1 pg (27-33); Mean Corpuscular Volume 89.3 fl (82-101); Mean Platelet Volume 9.7 fL (7.4-10.4); Monocytes # 0.7 10^3/uL (0.2-0.9); Neutrophils # 6.88 10^3/uL (1.8-7.7); Neutrophils % 71.4 %; Nucleated Red Blood Cells % 0 %; Platelet Count 217 10^3/cmm (157-399); Red Blood Count 5.15 10^6/uL (3.85-5.65); Red Cell Distribution Width 12.6 % (12.1-15.1); White Blood Count 9.64 10^3/uL (3.29-11.43)
[2023-04-27 11:48] LABS: Alanine Aminotransferase 18 U/L (0-41); Albumin Level 3.9 g/dL (3.5-5.2); Alkaline Phosphatase 99 U/L (40-130); Anion Gap 9.7 (5-19); Aspartate Amino Transferase 14 U/L (0-40); Blood Urea Nitrogen 8 mg/dL (6-20); Carbon Dioxide 27 mmol/L (22-29); Chloride 103 mmol/L (98-107); Creatinine Clr Calc Pharmacy 205.2731; Globulin 3.4 g/dL (1.3-4.6); Glomerular Filtration Rate 106.5 mL/min (90-130); Glucose 94 mg/dL (65-115); Osmolality Calculated 280 mOsm/kg (285-295); Potassium 3.7 mmol/L (3.5-5.1); Sodium 136 mmol/L (136-145); Total Bilirubin 0.8 mg/dL (0.15-1.2); Total Protein 7.3 g/dL (6.6-8.7)
[2023-05-04 17:28] LABS: Factor 5 Leiden Mutation NEGATIVE
[2023-05-05 15:54] LABS: PROTHROMBIN (FACTOR II) 20210G NEGATIVE
== END 2023-05-05 23:59 | disposition home or self-care (01) ==
PROVIDERS: PCP Nurse Practitioner Family; Visit Provider Internal Medicine
DX: I26.99 Other pulmonary embolism without acute cor pulmonale (principal)
CPT/HCPCS: 36415; 80053; 81241; 85025; 85210

== ENCOUNTER 2023-09-16 10:30 | Emergency (ER) | payer SELFPAY ==
--- NOTE | 2023-09-16 10:29 | ECG_ITS ---
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 Measurements Intervals [place] Rate: 90 P: 68 NE: 126 QRS: 30 QRSD: 90 T: 43 QT: 346 QTc: 425 Interpretive Statements SINUS RHYTHM NONSPECIFIC ST & T-WAVE ABNORMALITY Compared to ECG 03/24/2023 16:48:12 No significant changes Electronically Signed On 09-16-2023 13:18:04 CDT by Samuel Cobb M.D. [email or web address] [email or web address] regional hospitalPixie Technologymercy health [facility] hospital.[employer]/store/NU/[id number] f
[2023-09-16 10:31] VITALS: BP 157/94; PULSE 93; RESP 18; TEMP 36.8; O2SAT 98; BMI 43.9
--- NOTE | 2023-09-16 10:56 | XRR_ITS ---
PROCEDURE INFORMATION: Exam: XR Chest Exam date and time: 09/16/2023 11:08 AM Age: 43 years old Clinical indication: Cough and dyspnea and shortness of breath; Additional info: Dyspnea/cough TECHNIQUE: Imaging protocol: Radiologic exam of the chest. Views: 1 view. COMPARISON: CT angio chest PE protcl [id number] 03/24/2023 12:37 PM FINDINGS: Lungs: Unremarkable. No consolidation. Pleural spaces: Unremarkable. No pleural effusion. No pneumothorax. Heart/Mediastinum: Unremarkable. No cardiomegaly. Bones/joints: Unremarkable. XR/XR chest 1V portable [id number] IMPRESSION: No acute findings.
--- NOTE | 2023-09-16 11:04 | ED_ITS ---
HPI - SOB/Dyspnea 2 General: Chief Complaint: Shortness of Breath/Dyspnea Stated Complaint: chest pain, SOB Time Seen by Provider: 09/16/23 10:54 Source: patient Mode of arrival: ambulatory History of Present Illness: HPI Narrative: 43-year-old male presents emergency room complaining of chest discomfort and shortness of breath. He states he has similar sensation when he was found to have a PE a year ago this has been happening intermittently for some time. He is still taking his Eliquis. He had a stress test few years ago that showed questionable area of reversibility, He had a subsequent angiogram in 2021 that was negative. Not currently having any chest pain or shortness of breath at this time no fever sweats chills no hemoptysis MD elicited complaint: shortness of breath Exacerbating factors: inspiration Relieving factors: nothing Associated symptoms: Deny abdominal pain, chest congestion, chest pain, cough, diaphoresis, dizziness, extremity pain, fever(s), hemoptysis, lightheadedness, myalgias, nausea, orthopnea, palpitations, paresthesias, polydipsia, polyuria, rash, sense of impending doom, syncope or vomiting Review of Systems 2 Const: Denies: fever(s) or diaphoresis Card: Denies: chest pain, palpitations, lightheadedness, syncope or orthopnea Resp: Denies: hemoptysis or chest congestion GI: Denies: abdominal pain, nausea or vomiting : Denies: dysuria, urinary frequency or urinary urgency Musc: Denies: extremity pain Skin/Breast: Denies: rash Neuro: Denies: dizziness Endo: Denies: polyuria or polydipsia PFSH ED 2 PFSH: Medical History (Updated 09/16/23 @ 13:43 by Tonio Lopez DO) Tobacco abuse disorder Essential hypertension Dyslipidemia Elevated blood pressure reading Atypical chest pain No pertinent past medical history Chest pain No pertinent past medical history Surgical History No significant past surgical history Family History Family/Other CAD (coronary artery disease) uncle at 48, CHF Cancer Lung disease Stroke Father CAD (coronary artery disease) Diabetes Grandfather CAD (coronary artery disease) Mother Stroke Cancer Denies family history of Clotting disorder Dementia Chronic kidney disease (CKD) Suicide Anesthesia complication Bleeding disorder Social History Smoking and tobacco/nicotine status: current every day tobacco/nicotine user cigarettes Packs smoked per day: 1 Alcohol intake: former Substance/Drug Use: never Lives independently: Yes Household members: spouse Housing: House Marital status: Physical Exam 2 Const: COMMON NORMALS: no acute distress GENERAL APPEARANCE: cooperative and comfortable ORIENTATION/CONSCIOUSNESS: Yes awake, Yes oriented to person, Yes oriented to place and Yes oriented to time HENMT: COMMON NORMALS: normocephalic, atraumatic and hearing grossly normal bilaterally HEAD & SCALP: normocephalic and atraumatic Resp: COMMON NORMALS: normal respiratory effort, No retractions, No use of accessory muscles and clear to auscultation bilaterally AUSCULTATION: clear to auscultation bilaterally Cardio: COMMON NORMALS: regular rate, regular rhythm and No murmurs present (Cardio) RATE: regular rate RHYTHM: regular rhythm GI: COMMON NORMALS: Soft to palpation and No hepatosplenomegaly present A USCULTATION: Yes normoactive bowel sounds PALPATION: Yes Soft to palpation, No Tenderness to palpation present (GI), No Guarding due to palpation present (GI) and Yes No hepatosplenomegaly present Extremity: COMMON NORMALS: normal to inspection, capillary refill normal, no clubbing, cyanosis or edema, no calf tenderness and no pedal edema Neuro: SENSORIUM/ORIENTATION: Yes oriented to person, Yes oriented to place and Yes oriented to time Skin: COMMON NORMALS: no rashes or lesions noted GENERAL SKIN EXAM: no rashes or lesions noted Course 2 Vital Signs: Vital signs: Vital Signs Temperature 98.2 F 09/16/23 10:31 Pulse Rate 62 09/16/23 13:50 Respiratory Rate 18 09/16/23 10:31 Blood Pressure 126/74 09/16/23 13:30 Pulse Oximetry 99 09/16/23 13:50 Oxygen Delivery Me thod Room Air 09/16/23 13:30 MDM - SOB/Dyspnea Medical Decision Making Patient presents emergency room complaining of intermittent twinges of chest pain he was concerned that he had a recurrence or worsening of his PE. About a year ago he was seen for PE he is still taking the Eliquis. Cardiac enzymes are negative repeat CTA of the chest did not show any pulmonary embolism. EKG and cardiac enzymes did not show any acute changes discharge patient home set him up for Lexiscan sestamibi stress test Medical Records I reviewed the patient's medical records. Lab Data I reviewed the patient's lab results. 09/16/23 11:04 09/16/23 11:04 Labs/Radiology: Radiology Impressions Chest X-Ray 09/16/23 10:56 IMPRESSION: No acute findings. Chest CTA 09/16/23 11:25 IMPRESSION: 1. No evidence of pulmonary embolus. 2. Mild focal opacities within the right costophrenic angle, suspicious for atelectasis 3. Interval improvement in thoracic lymphadenopathy Laboratory Results WBC 8.19 10^3/uL (3.29-11.43) 09/16/23 11:04 RBC 4.82 10^6/uL (3.85-5.65) 09/16/23 11:04 Hgb 14.40 g/dL (11.27-16.99) 09/16/23 11:04 Hct 43.6 % (37-53) 09/16/23 11:04 MCV 90.5 fl (82-101) 09/16/23 11:04 MCH 29.9 pg (27-33) 09/16/23 11:04 MCHC 33.0 g/dL (30-55) 09/16/23 11:04 RDW 12.3 % (12.1-15.1) 09/16/23 11:04 Plt Count 238 10^3/cmm (157-399) 09/16/23 11:04 MPV 9.5 fL (7.4-10.4) 09/16/23 11:04 Neut % (Auto) 70.4 % 09/16/23 11:04 Lymph % (Auto) 22.1 % 09/16/23 11:04 [place] % (Auto) 6.5 % 09/16/23 11:04 Eos % (Auto) 0.4 % 09/16/23 11:04 Baso % (Auto) 0.2 % 09/16/23 11:04 Neut # (Auto) 5.77 10^3/uL (1.8-7.7) 09/16/23 11:04 Lymph # (Auto) 1.8 10^3/uL (0.8-4.8) 09/16/23 11:04 [place] # (Auto) 0.5 10^3/uL (0.2-0.9) 09/16/23 11:04 Eos # (Auto) 0.0 10^3/uL (0.0-0.8) 09/16/23 11:04 Baso # (Auto) 0.0 10^3/uL (0.0-0.1) 09/16/23 11:04 Nucleated RBC % (auto) 0 % 09/16/23 11:04 Nucleated RBCs # 0.0 /100WBC 09/16/23 11:04 Sodium 139 mmol/L (136-145) 09/16/23 11:04 Potassium 4.0 mmol/L (3.5-5.1) 09/16/23 11:04 Chloride 103 mmol/L (98-107) 09/16/23 11:04 Carbon Dioxide 28 mmol/L (22-29) 09/16/23 11:04 Anion Gap 12.0 (5-19) 09/16/23 11:04 BUN 9 mg/dL (6-20) 09/16/23 11:04 Creatinine 0.9 mg/dL (0.7-1.2) 09/16/23 11:04 GFR Calculation 92.5 mL/min (90-130) 09/16/23 11:04 Glucose 106 mg/dL (65-115) 09/16/23 11:04 Calculated Osmolality 287 mOsm/kg (285-295) 09/16/23 11:04 Calcium 9.0 mg/dL (8.5-10.5) 09/16/23 11:04 Total Bilirubin 1.2 mg/dL (0.15-1.2) 09/16/23 11:04 AST 14 U/L (0-40) 09/16/23 11:04 ALT 11 U/L (0-41) 09/16/23 11:04 Alkaline Phosphatase 110 U/L (40-130) 09/16/23 11:04 Troponin T Baseline < 6 ng/L (0-15) 09/16/23 11:04 Troponin T 120 Minute 6.00 ng/L (0-15) 09/16/23 13:06 Delta Troponin T 0.48093 ABS# (0-10) 09/16/23 13:06 Total Protein 7.3 g/dL (6.6-8.7) 09/16/23 11:04 Albumin 3.9 g/dL (3.5-5.2) 09/16/23 11:04 Globulin 3.4 g/dL (1.3-4.6) 09/16/23 11:04 All radiology interpretation(s) finalized by discharge Discharge Plan Discharge Patient Disposition: Home Clinical Impression: Atypical chest pain Condition: Stable Prescriptions: No Action hydroxyzine pamoate 25 mg capsule 25 mg PO TID PRN (Reason: itching) Qty: 90 0RF (DME) Crutches See Rx Instructions .Route .MEDSUPPLY Qty: 1 0RF Rx Instructions: As directed (DME) HINGE KNEE BRACE See Rx Instructions .Route .MEDSUPPLY Qty: 1 0RF Rx Instructions: As directed lisinopril 10 mg tablet 10 mg PO DAILY Qty: 30 5RF Eliquis 5 mg tablet 5 mg PO BID Qty: 60 2RF acetaminophen 500 mg Tablet 1,000 mg PO Q6H PRN (Reason: Pain) famotidine 10 mg Tablet 10 mg PO BID Discharge Orders: Discharge ED (Routine); Ordered 09/16/23 Ordered By: Tonio Lopez Referrals: Lulú Cuba FNP-C [Primary Care Provider] - Discharge Diet: Usual diet Discharge Activity: Limit activity as instructed Patient Instructions: Opioid Safety, Pain Management Activity Restrictions/Additional Instructions: Thank you for choosing [facility] for your healthcare needs today. It is very important that you follow up as instructed or that you return to the Emergency Department should you have concerns or if your condition changes or worsens in any way. You were seen today with complaint of chest pain cardiac enzymes and EKG were negative CT of your chest to evaluate for PE did not show any acute or even old PE. Continue to take your apixaban as previously prescribed. Case management make arrangements for you to have a stress test to further evaluate your heart. Coding Level of Care Code ED Redevelopment Manager for Myesha Mcneal
[2023-09-16 11:15] LABS: Basophils % 0.2 %; Eosinophils % 0.4 %; Hematocrit 43.6 % (37-53); Lymphocytes # 1.8 10^3/uL (0.8-4.8); Lymphocytes % 22.1 %; Mean Corpuscular Hemoglobin 29.9 pg (27-33); Mean Corpuscular Volume 90.5 fl (82-101); Mean Platelet Volume 9.5 fL (7.4-10.4); Monocytes # 0.5 10^3/uL (0.2-0.9); Monocytes % 6.5 %; Neutrophils # 5.77 10^3/uL (1.8-7.7); Neutrophils % 70.4 %; Nucleated Red Blood Cells % 0 %; Platelet Count 238 10^3/cmm (157-399); Red Blood Count 4.82 10^6/uL (3.85-5.65); Red Cell Distribution Width 12.3 % (12.1-15.1); White Blood Count 8.19 10^3/uL (3.29-11.43)
--- NOTE | 2023-09-16 11:25 | CTR_ITS ---
PROCEDURE INFORMATION: Exam: CTA Chest With Contrast Exam date and time: 09/16/2023 11:52 AM Age: 43 years old Clinical indication: Pain; Dyspnea; Chest pressure; Additional info: Chest pain/dyspnea TECHNIQUE: Imaging protocol: Computed tomographic angiography of the chest with contrast. Exam focused on the arteries. 3D rendering (Not supervised by radiologist): MIP and/or 3D reconstructed images were created by the technologist. Radiation optimization: All CT scans at this facility use at least one of these dose optimization techniques: automated exposure control; mA and/or kV adjustment per patient size (includes targeted exams where dose is matched to clinical indication); or iterative reconstruction. Contrast material: OMNIPAQUE 350; Contrast volume: 100 ml; Contrast route: INTRAVENOUS (IV); COMPARISON: CT angio chest PE protcl [id number] 03/24/2023 12:37 PM RADIATION DOSE METRICS: Total DLP (mGy-cm): 535.37 FINDINGS: Pulmonary arteries: Normal. No pulmonary emboli. Aorta: Unremarkable. No aortic aneurysm. No aortic dissection. Lungs: There is mild elevation of the bilateral hemidiaphragms suggesting suboptimal depth of inspiration. There are mild focal opacities within the right costophrenic angle. There is a thin walled pulmonary cyst within the medial left upper lobe Pleural spaces: No pleural effusions are identified. No pneumothorax is noted.. Heart: Unremarkable. No cardiomegaly. No pericardial effusion. Lymph nodes: There has been interval improvement in mediastinal and left hilar lymphadenopathy. The largest left hilar lymph node now measures 7 mm in short axis dimension compared with 1.3 cm previously. Bones/joints: Unremarkable. No acute fracture. Soft tissues: Unremarkable. CT/CT angio chest PE protcl [id number] IMPRESSION: 1. No evidence of pulmonary embolus. 2. Mild focal opacities within the right costophrenic angle, suspicious for atelectasis 3. Interval improvement in thoracic lymphadenopathy
[2023-09-16 11:30] VITALS: BP 158/103; PULSE 71; O2SAT 97
[2023-09-16 11:39] LABS: Alanine Aminotransferase 11 U/L (0-41); Albumin Level 3.9 g/dL (3.5-5.2); Alkaline Phosphatase 110 U/L (40-130); Aspartate Amino Transferase 14 U/L (0-40); Blood Urea Nitrogen 9 mg/dL (6-20); Carbon Dioxide 28 mmol/L (22-29); Chloride 103 mmol/L (98-107); Creatinine Clr Calc Pharmacy 187.2072; Globulin 3.4 g/dL (1.3-4.6); Glomerular Filtration Rate 92.5 mL/min (90-130); Glucose 106 mg/dL (65-115); Osmolality Calculated 287 mOsm/kg (285-295); Sodium 139 mmol/L (136-145); Total Bilirubin 1.2 mg/dL (0.15-1.2); Total Protein 7.3 g/dL (6.6-8.7)
[2023-09-16] MEDS: iohexol 350 mg/mL 500 mL Btl (per mL) IV (11:53)
[2023-09-16 12:30] VITALS: BP 139/72; PULSE 54; O2SAT 95
[2023-09-16 13:01] LABS: Troponin(5th) Baseline < 6 ng/L (0-15)
[2023-09-16 13:28] LABS: Troponin 5 2HR Delta 0.00001 ABS# (0-10)
[2023-09-16 13:30] VITALS: BP 126/74; PULSE 64; O2SAT 92
[2023-09-16 13:50] VITALS: PULSE 62; O2SAT 99
== END 2023-09-16 13:51 | disposition home or self-care (01) ==
PROVIDERS: Emergency Provider Family Medicine; PCP Nurse Practitioner Family
DX: R07.89 Other chest pain (principal); Z79.01 Long term (current) use of anticoagulants; F17.210 Nicotine dependence, cigarettes, uncomplicated; I10 Essential (primary) hypertension; E78.5 Hyperlipidemia, unspecified
CPT/HCPCS: 36415; 71045; 71275; 80053; 84484; 85025; 93005; 99285; Q9967

== ENCOUNTER 2024-07-25 12:20 | Outpatient (CLI) | payer MEDICAID, SELFPAY ==
--- NOTE | 2024-07-25 12:45 | USCV_ITS ---
Yaniv Peñaloza Age: 44 Gender: M : 1980 Exam Date: 07/25/2024 12:57 Ordering Phys: Lulú Cuba INSULATION BOARD BACK TENDER-Mark Technologist: PATRICK Exam Location: [facility] [place] Indication: varicose veins HISTORY: Patient has history of. Pulmonary embolism. Varicose veins. PROCEDURES: Venous duplex imaging was performed in only the right lower extremity. The following venous structures were evaluated: common femoral vein, profunda vein, proximal portion of the greater saphenous vein, superficial femoral vein, and the popliteal vein. In addition, the posterior tibial and peroneal trunk were evaluated. FINDINGS: Right lower extremities varicosities noted. No thrombus seen. No evidence of DVT seen in any vessel visualized at this time. CONCLUSIONS No evidence of right lower extremity DVT. RLE varicosities noted Carlo García MD (Electronically Signed) Final Date: 25 Jul 2024 13:24 S
== END 2024-07-25 12:21 | disposition home or self-care (01) ==
LOC: RAD 12:23
PROVIDERS: PCP Nurse Practitioner Family; Visit Provider Nurse Practitioner Family
DX: I83.91 Asymptomatic varicose veins of right lower extremity (principal); M79.659 Pain in unspecified thigh; Z86.718 Personal history of other venous thrombosis and embolism
CPT/HCPCS: 93971

== ENCOUNTER 2024-08-22 12:27 | Oncology outpatient (recurring) (ONCR) | payer MEDICAID, SELFPAY ==
[2024-08-22 13:01] LABS: Basophils % 0.5 %; Eosinophils # 0.1 10^3/uL (0.0-0.8); Eosinophils % 0.6 %; Hematocrit 44.1 % (37-53); Lymphocytes # 1.8 10^3/uL (0.8-4.8); Lymphocytes % 22.6 %; Mean Corpuscular HGB Conc 34.2 g/dL (30-55); Mean Corpuscular Hemoglobin 29.3 pg (27-33); Mean Corpuscular Volume 85.6 fl (82-101); Mean Platelet Volume 9.5 fL (7.4-10.4); Monocytes # 0.7 10^3/uL (0.2-0.9); Neutrophils # 5.46 10^3/uL (1.8-7.7); Neutrophils % 67.1 %; Nucleated Red Blood Cells % 0 %; Platelet Count 250 10^3/cmm (157-399); Red Blood Count 5.15 10^6/uL (3.85-5.65); White Blood Count 8.14 10^3/uL (3.29-11.43)
[2024-08-22 13:16] LABS: D Dimer <= 0.27 ug/mLFEU (0-0.59)
[2024-08-22 13:20] LABS: Alanine Aminotransferase 13 U/L (0-41); Albumin Level 3.7 g/dL (3.5-5.2); Alkaline Phosphatase 130 U/L (40-130); Anion Gap 12.8 (5-19); Aspartate Amino Transferase 15 U/L (0-40); Blood Urea Nitrogen 8 mg/dL (6-20); Calcium 9.1 mg/dL (8.5-10.5); Carbon Dioxide 27 mmol/L (22-29); Chloride 103 mmol/L (98-107); Globulin 3.7 g/dL (1.3-4.6); Glomerular Filtration Rate 92.1 mL/min (90-130); Glucose 90 mg/dL (65-115); Osmolality Calculated 286 mOsm/kg (285-295); Potassium 3.8 mmol/L (3.5-5.1); Sodium 139 mmol/L (136-145); Total Protein 7.4 g/dL (6.6-8.7)
[2024-08-22 15:11] LABS: Immunoglobulin IGA 397 mg/dL (70-400); Immunoglobulin IGG 1341 mg/dL (700-1600); Immunoglobulin IGM 98 mg/dL (40-230)
[2024-08-23 06:01] LABS: PROTEIN, TOTAL 7.1 g/dL (6.1-8.1)
[2024-08-23 15:19] LABS: Anti-Nuclear Antibody Screen NEGATIVE (NEGATIVE)
[2024-08-23 22:10] LABS: Lupus DRVVT Confirm NEGATIVE (NEGATIVE); PTT-LA-Screen 39 sec (< OR = 40)
[2024-08-24 12:25] LABS: ALBUMIN 3.8 g/dL (3.8-4.8); ALPHA 1 GLOBULIN 0.3 g/dL (0.2-0.3); ALPHA 2 GLOBULIN 0.7 g/dL (0.5-0.9); BETA 1 GLOBULIN 0.5 g/dL (0.4-0.6); BETA 2 GLOBULIN 0.5 g/dL (0.2-0.5); GAMMA GLOBULIN 1.3 g/dL (0.8-1.7)
[2024-08-25 01:49] LABS: CARDIOLIPIN AB (IGA) <2.0 APL-U/mL; CARDIOLIPIN AB (IGG) <2.0 GPL-U/mL; CARDIOLIPIN AB (IGM) 5.6 MPL-U/mL
[2024-08-25 18:14] LABS: PROTEIN S, ACTIVITY 106 % normal (70-150)
[2024-08-25 20:29] LABS: PROTEIN C, ACTIVITY 120 % normal (70-180)
[2024-08-25 20:41] LABS: Antithrombin III Activity 104 % normal (80-135)
[2024-08-26 15:15] LABS: Immunofixation Serum Normal pattern.
[2024-08-28 12:50] LABS: Beta 2 Glycoprotein IGA <2.0 U/mL (<20.0); Beta 2 Glycoprotein IGG <2.0 U/mL (<20.0); Beta 2 Glycoprotein IGM 3.5 U/mL (<20.0)
== END 2024-09-03 23:59 | disposition home or self-care (01) ==
PROVIDERS: Nurse Practitioner Family; PCP Nurse Practitioner Family; Visit Provider Internal Medicine
DX: I26.99 Other pulmonary embolism without acute cor pulmonale (principal); Z72.0 Tobacco use
CPT/HCPCS: 36415; 80053; 82784; 84155; 84165; 85025; 85300; 85303; 85306; 85378; 85613; 85730; 86038; 86146; 86147; 86334

== ENCOUNTER 2024-11-22 11:23 | Oncology outpatient (recurring) (ONCR) | payer MEDICAID, SELFPAY ==
[2024-11-22 12:40] LABS: Alanine Aminotransferase 12 U/L (0-41); Albumin Level 3.7 g/dL (3.5-5.2); Alkaline Phosphatase 132 U/L (40-130); Blood Urea Nitrogen 9 mg/dL (6-20); Calcium 8.8 mg/dL (8.5-10.5); Carbon Dioxide 23 mmol/L (22-29); Chloride 101 mmol/L (98-107); Creatinine Clr Calc Pharmacy 173.6117; Globulin 3.9 g/dL (1.3-4.6); Glucose 98 mg/dL (65-115); Osmolality Calculated 283 mOsm/kg (285-295); Sodium 137 mmol/L (136-145); Total Protein 7.6 g/dL (6.6-8.7)
[2024-11-22 12:45] LABS: Hematocrit 44.1 % (37-53); Hemoglobin 14.30 g/dL (11.27-16.99); Mean Corpuscular HGB Conc 32.4 g/dL (30-55); Mean Corpuscular Hemoglobin 28.9 pg (27-33); Mean Corpuscular Volume 89.1 fl (82-101); Nucleated Red Blood Cells % 0 %; Platelet Count 263 10^3/cmm (157-399); Red Blood Count 4.95 10^6/uL (3.85-5.65); White Blood Count 7.40 10^3/uL (3.29-11.43)
[2024-11-22 12:51] LABS: Anion Gap 16.7 (5-19); Aspartate Amino Transferase 16 U/L (0-40); Potassium 3.7 mmol/L (3.5-5.1)
== END 2024-12-04 23:59 | disposition home or self-care (01) ==
PROVIDERS: PCP Nurse Practitioner Family; Visit Provider Internal Medicine
DX: I26.99 Other pulmonary embolism without acute cor pulmonale (principal)
CPT/HCPCS: 36415; 80053; 83615; 85025